=== PATIENT | male | born 1950 | race Caucasian/White ===

== ENCOUNTER 2016-12-28 10:31 | Emergency (ER) | payer OTHER ==
[~2016-12-28] VITALS: Ht 188 cm; Wt 93.0 kg
--- NOTE | 2016-12-28 11:15 | ED GENERAL ADULT ---
History of Present Illness General Chief Complaint: General Adult Stated Complaint: PER "HIS BLOOD PRESURE IS HIGH" Source: patient, family, old records Exam Limitations: no limitations Vital Signs & Intake/Output Vital Signs & Intake/Output Vital Signs Date Time Temp Pulse Resp B/P Pulse O2 O2 Flow FiO2 Ox Delivery Rate 12/28 1331 96.8 84 18 182/80 04 1314 96.8 84 18 182/80 12/28 1135 182/80 04 1130 194/84 12/28 1130 96 Room Air Room Air 12/28 1035 97.4 100 20 204/74 98 Room Air Room Air Allergies Coded Allergies: No Known Allergies (12/28/16) Reconcile Medications Bupropion HCl (Bupropion XL) 150 MG TAB.ER.24H 1 TAB PO QAM DEPRESSION ( Reported) Diltiazem HCl (Cardizem) 30 MG TABLET 1 TAB PO QAM htn Doxazosin Mesylate 8 MG TABLET 1 TAB PO QPM UNKNOWN (Reported) Lorazepam 0.5 MG TABLET 1 TAB PO BID ANXIETY (Reported) Losartan Potassium 50 MG TABLET 2 TAB PO DAILY HEART (Reported) Tiotropium [place] (Spiriva) 18 MCG CAP.W.DEV 1 CAP INH DAILY BREATHING PROBLEMS (Reported) Triage Note: PT TO ED WITH C/O HIGH BLOOD PRESSURE, ON LOSARTAN 100MG AND CARDURA 8MG DAILY "THEY HAVE BEEN AJUSTING MY MEDS". Triage Nurses Notes Reviewed? yes Onset: several weeks Duration: week(s):, continues in ED, waxing and waning Timing: recent history Injury Environment: home Severity: moderate Modifying Factors: Improves With: medication. HPI: Several weeks prior to admission spouse and patient not his morning blood pressures to be elevated with normalization in the evening. Denies fever chills nausea vomiting diarrhea abdominal pain chest pain shortness breath headache dysuria rash bleeding. Past History Travel History Traveled to [place] past 21 day No Medical History Any Pertinent Medical History? 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 No Review of Systems Review of Systems Constitutional: Reports: no symptoms. EENTM: Reports: no symptoms. Respiratory: Reports: no symptoms. Cardiovascular: Reports: no symptoms. GI: Reports: no symptoms. Genitourinary: Reports: no symptoms. Musculoskeletal: Reports: no symptoms. Skin: Reports: no symptoms. Neurological/Psychological: Reports: see HPI, anxiety. Hematologic/Endocrine: Reports: no symptoms. Immunologic/Allergic: Reports: no symptoms. All Other Systems: Reviewed and Negative Physical Exam Physical Exam General Appearance: well developed/nourished, alert, awake, anxious, mild distress Head: atraumatic, normal appearance Eyes: Bilateral: normal appearance, PERRL, EOMI. Ears, Nose, Throat: normal pharynx, normal ENT inspection Neck: normal inspection, supple, full range of motion, no midline tenderness Respiratory: normal breath sounds, chest non-tender, no respiratory distress, quiet respiration, lungs clear Cardiovascular: regular rate/rhythm, normal peripheral pulses, norml femoral pulses equa Peripheral Pulses: 4+ carotid (R), 4+ carotid (L) Gastrointestinal: normal bowel sounds, soft, non-tender, no organomegaly Back: normal inspection, normal range of motion Extremities: normal inspection, normal capillary refill, normal range of motion, no edema Neurologic/Psych: no motor/sensory deficits, awake, alert, oriented x 3, normal gait, normal mood/affect, 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 Skin: intact, normal color, warm/dry Lymphatic: no anterior cervical ronny Core Measures ACS in differential dx? No CVA/TIA Diagnosis: No Severe Sepsis Present: No Septic Shock Present: No Progress Differential Diagnoses I considered the following diagnoses in my evaluation of the patient: Essential hypertension anxiety Plan of Care: Orders Procedure Date/time Status URINALYSIS 12/28 1112 Complete TSH REFLEX 12/28 1112 Complete TROPONIN LEVEL 12/28 1112 Complete MAGNESIUM 12/28 1112 Complete COMPREHENSIVE METABOLIC PANEL 12/28 1112 Complete CBC WITHOUT DIFFERENTIAL 12/28 111 Complete EKG 12/28 1112 Active Laboratory Tests 12/28/16 1126: Anion Gap 6, Estimated GFR > 60, BUN/Creatinine Ratio 18.9, Glucose 99, Calcium 9.5, Magnesium 2.2, Total Bilirubin 0.5, AST 45, ALT 50, Alkaline Phosphatase 61 , Troponin I < 0.01, Total Protein 6.9, Albumin 4.0, Globulin 2.9, Albumin/ Globulin Ratio 1.4, TSH &T3 &Free T4 Intrp 1.270, CBC w Diff NO MAN DIFF REQ, RBC 3.84 L, MCV 98.3 H, MCH 32.8 H, RDW 13.7, MPV 6.6 L, Gran % 66.1, Lymphocytes % 23.6, Monocytes % 7.3, Eosinophils % 2.2, Basophils % 0.8, Absolute Granulocytes 3.7, Absolute Lymphocytes 1.3, Absolute Monocytes 0.4, Absolute Eosinophils 0.1, Absolute Basophils 0, PUBS MCHC 33.4 12/28/16 1000: Urine Color YEL, Urine Clarity CLEAR, Urine pH 6.0, Ur Specific [place] 1.010, Urine Protein 30 H, Urine Ketones NEG, Urine Nitrite NEG, Urine Bilirubin NEG, Urine Urobilinogen 0.2, Ur Leukocyte Esterase NEG, Ur Microscopic SEDIMENT EXAMINED, Urine RBC RARE, Ur Epithelial Cells RARE, Urine Hemoglobin TRACE- INTACT H, Urine Glucose NEG Diagnostic Imaging: Viewed by Me: Radiology Read. Discussed w/RAD: Radiology Read. CXR Impression: no acute abnormality, no infiltrates, normal size heart, normal mediastinum Initial ED EKG: normal axis, normal intervals, normal p-waves, normal QRS complex, normal sinus rhythm, no ST T wave changes Prior EKG: unchanged Rhythm Strip: normal sinus rhythm Departure Departure Time of Disposition: 1314 Disposition: HOME OR SELF CARE Condition: Stable Clinical Impression Primary Impression: Hypertension Qualifiers: Hypertension type: essential hypertension Qualified Code: I10 - Essential (primary) hypertension Referrals: MARISSA POSADA,Rick POLANCO Call for cardiology follow up LILLIAN POSADA,NEIL Bertrand (PCP/Family) Departure Forms: Customer Survey General Discharge Information Prescriptions: Current Visit Scripts Diltiazem HCl (Cardizem) 1 TAB PO QAM #30 TAB Critical Care Note Critical Care Note Critical Care Time: non-applicable
[2016-12-28 11:50] LABS: ABSOLUTE BASOPHIL COUNT 0 /CUMM (0.0-0.2); ABSOLUTE EOSINOPHIL COUNT 0.1 /CUMM (0.0-0.7); ABSOLUTE GRANULOCYTE CT 3.7 /CUMM (1.4-6.5); ABSOLUTE LYMPH COUNT 1.3 /CUMM (1.2-3.4); ABSOLUTE MONOCYTE COUNT 0.4 /CUMM (0.10-0.60); BASOPHIL % 0.8 % (0.0-2.0); EOSINOPHIL % 2.2 % (0-5); GRANULOCYTE % 66.1 % (42.2-75.2); HEMATOCRIT 37.7 % (42-52); MEAN CORPUSCULAR HGB 32.8 PG (27.0-31.0); MEAN CORPUSCULAR HGB CONC 33.4 G/DL (33.0-37.0); MEAN CORPUSCULAR VOLUME 98.3 FL (80.0-94.0); MEAN PLATELET VOLUME 6.6 FL (7.4-10.4); PLATELET COUNT 208 /CUMM (130-400); RBC DISTRIBUTION WIDTH 13.7 % (11.5-14.5); RED BLOOD CELL CT 3.84 /CUMM (4.70-6.10); WHITE BLOOD CELL COUNT 5.6 /CUMM (4.8-10.8)
--- NOTE | 2016-12-28 12:00 | RADIOLOGY REPORT ---
EXAMINATION: XR CHEST CLINICAL INFORMATION: Hypertension COMPARISON: None TECHNIQUE: 2 views of the chest were obtained. FINDINGS: No significant abnormality is noted involving the heart, lungs, mediastinum, bony thorax or soft tissues. Old healed right rib fractures present. IMPRESSION: No acute disease.
[2016-12-28] MEDS ORDERED: SPIRIVA18 MCG INH (12:54)
[2016-12-28] MEDS ORDERED: BUPROPION XL150 MG PO (12:54)
[2016-12-28] MEDS ORDERED: LOSARTAN POTASS50 M1 PO (12:54)
[2016-12-28] MEDS ORDERED: DOXAZOSIN MESYLA8 M1 PO (12:55)
[2016-12-28] MEDS ORDERED: LORAZEPAM0.5 M1 PO (12:55)
[2016-12-28] MEDS ORDERED: CARDIZEM30 M1 PO (13:17)
[2016-12-28 13:31] VITALS: BP 182/80
== END 2016-12-28 13:32 ==
LOC: ERH 10:31
PROVIDERS: Emergency Medicine
DX: I10 Essential (primary) hypertension (principal); Z72.0 Tobacco use
CPT/HCPCS: 81001; 93005; 93010

== ENCOUNTER 2017-11-08 06:18 | Inpatient (IN) | payer OTHER, MEDICARE ==
[2017-11-08] VITALS (8 sets, daily range): BP systolic 169–194; BP diastolic 72–91
[~2017-11-08] VITALS: Ht 188 cm; Wt 96.6 kg
[~2017-11-08 06:18] MED LIST: BUPROPION XL150 MG PO; CARDIZEM30 M1 PO; DOXAZOSIN MESYLA8 M1 PO; LORAZEPAM0.5 M1 PO; LOSARTAN POTASS50 M1 PO; SPIRIVA18 MCG INH
--- NOTE | 2017-11-08 06:56 | ED DYSPNEA/ASTHMA COMPLAINT ---
History of Present Illness General Chief Complaint: Dyspnea (COPD, CHF, Other) Stated Complaint: SOB Source: patient, family, old records Exam Limitations: no limitations Vital Signs & Intake/Output Vital Signs & Intake/Output Vital Signs Date Time Temp Pulse Resp B/P B/P Pulse O2 O2 Flow FiO2 Mean Ox Delivery Rate 11/08 0704 100.7 11/08 0636 95 Room Air Room Air 11/08 0626 100.7 84 22 169/80 95 Room Air Allergies Coded Allergies: No Known Allergies (12/28/16) Reconcile Medications Bupropion HCl (Bupropion XL) 150 MG TAB.ER.24H 1 TAB PO QAM DEPRESSION ( Reported) Diltiazem HCl (Cardizem) 30 MG TABLET 1 TAB PO QAM htn Doxazosin Mesylate 8 MG TABLET 1 TAB PO QPM UNKNOWN (Reported) Lorazepam 0.5 MG TABLET 1 TAB PO BID ANXIETY (Reported) Losartan Potassium 50 MG TABLET 2 TAB PO DAILY HEART (Reported) Tiotropium [place] (Spiriva) 18 MCG CAP.W.DEV 1 CAP INH DAILY BREATHING PROBLEMS (Reported) Core Measure Meds Pre-Hospital aspirin Triage Note: 67YO YO MALETO TRIAGE W/CO DIFF BREATHING THAT HAS BEEN PRESENT X 2 D BUT WORSENED THIS AM. HX COPD. RA SAT =95 EXP WHEEZE PRESENT Triage Nurses Notes Reviewed? yes Onset: 2 days Duration: day(s):, constant, continues in ED, getting worse Timing: recent history Severity: moderate, severe Activities at Onset: none Prior Episodes/Possible Cause: illness exposure Modifying Factors: Worsens With: movement. Associated Symptoms: cough, fever, loss of appetite, wheezing, weakness HPI: 2 days prior to admission patient complains of nasal congestion productive cough increasing wheezing / shortness of breath abdominal discomfort with bloating anorexia chills and fever. He denies chest pain headache dysuria rash bleeding. (Jessica POSADA,Ernesto) Past History Travel History Traveled to [place] past 21 day No Medical History Any Pertinent Medical History? 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 No (Ernesto Lopez MD) Psychosocial History ETOH Use: DAILY, [employer] (Will POSADA,Jacki) Review of Systems Review of Systems Constitutional: Reports: see HPI, chills, fever, malaise, weakness. EENTM: Reports: see HPI, nasal congestion. Respiratory: Reports: see HPI, cough, sputum production, wheezing. Cardiovascular: Reports: no symptoms. GI: Reports: see HPI, abdominal pain, bloating. Genitourinary: Reports: no symptoms. Musculoskeletal: Reports: see HPI, muscle pain. Skin: Reports: no symptoms. Neurological/Psychological: Reports: no symptoms. Hematologic/Endocrine: Reports: no symptoms. Immunologic/Allergic: Reports: no symptoms. All Other Systems: Reviewed and Negative (Ernesto Lopez MD) Physical Exam Physical Exam General Appearance: well developed/nourished, alert, awake, anxious, moderate distress, obese Head: atraumatic, normal appearance Eyes: Bilateral: normal appearance, PERRL, EOMI. Ears, Nose, Throat: normal pharynx, nasal congestion, moist mucus membranes Neck: normal inspection, supple, full range of motion, no midline tenderness Respiratory: chest non-tender, decreased breath sounds, wheezing, respiratory distress Cardiovascular: regular rate/rhythm, normal peripheral pulses, norml femoral pulses equa Peripheral Pulses: 4+ carotid (R), 4+ carotid (L) Gastrointestinal: normal bowel sounds, soft, non-tender, no organomegaly Extremities: normal inspection, normal capillary refill, normal range of motion, no edema Neurologic/Psych: no motor/sensory deficits, awake, alert, oriented x 3, normal gait, normal mood/affect, 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 Yes No ASA d/t Medical Contraindication CVA/TIA Diagnosis No Sepsis Present: No Sepsis Focused Exam Completed? No (Ernesto Lopez MD) Progress Differential Diagnosis: asthma, bronchitis, CHF, COPD, pneumonia Plan of Care: Orders Procedure Date/time Status Heart Healthy Diet 11/08 L Active ED Holding Orders 11/08 812 Active Admit to inpatient 11/08 812 Active Vital Signs 11/08 812 Active 24 HR URINE LYTES 11/08 812 Active Code Status 11/08 812 Active Add-on Test (ER Only) 11/08 757 Active Add-on Test (ER Only) 11/08 751 Active THYROID STIMULATING HORMONE 11/08 654 Active SERUM OSMOLALITY 11/08 654 Active FREE T4 11/08 654 Active ETHANOL 11/08 654 Active RAPID VIRAL INFLUENZA A 11/08 650 Complete BLOOD CULTURE 11/08 650 Active TROPONIN LEVEL 11/08 650 Active LIPASE 11/08 650 Active COMPREHENSIVE METABOLIC PANEL 11/08 650 Active CBC WITHOUT DIFFERENTIAL 11/08 650 Active B-TYPE NATRIURETIC PEP (BNP) 11/08 650 Active EKG 11/08 650 Active Current Medications Sig/[place] Start time Last Medication Dose Stop Time Status Admin Nicotine 21 MG ONCE ONE 11/08 814 UNVr (Nicoderm) 11/08 815 Laboratory Tests 11/08/1755: Anion Gap 7, Estimated GFR > 60, BUN/Creatinine Ratio 25.0, Glucose 108 H, Serum Osmolality Pending, Calcium 8.1 L, Total Bilirubin 0.5, AST 30, ALT 35, Alkaline Phosphatase 68, Troponin I 0.03, Hmr-S-Wnliqexpzuj Pept 1770 H, Total Protein 6.1 L, Albumin 3.4 L, Globulin 2.7, Albumin/Globulin Ratio 1.3, Lipase 52, TSH Pending, Free T4 Pending, CBC w Diff MAN DIFF ORDERED, RBC 3.26 L, MCV 96.7 H, MCH 33.1 H, MCHC 34.3, RDW 13.9, MPV 6.5 L, Gran % 83.8 H, Lymphocytes % 6.8 L, Monocytes % 9.1, Eosinophils % 0.2, Basophils % 0.1, Absolute Granulocytes 5.2, Segmented Neutrophils Pending, Absolute Lymphocytes 0.4 L, Absolute Monocytes 0.6, Absolute Eosinophils 0, Absolute Basophils 0, Serum Alcohol Pending Microbiology 11/08 07 BLOOD: Blood Culture - RECD 11/08 658 NASOPHARYN: Influenza Virus A & B Rapid Smear - COMP 11/08 654 BLOOD: Blood Culture - RECD 11/08/2017 7:13:13 AM Patient signed out to me by Dr. Lopez. Pending labs, x-ray. 8:15 AM D/W ROOPA, WILL ADMIT TO ICU. (WillJacki barcenas MD) Diagnostic Imaging: Viewed by Me: Radiology Read. Discussed w/RAD: Radiology Read. Initial ED EKG: pending Hand-Off Endorsed To: Jacki Solis MD Endorsed Time: 0700 Pending: EKG, labs, Xray (Ernesto Lopez MD) CXR Impression: PATIENT: KAMLESH HIRSCH PRESENT AGE: 67 PATIENT ACCOUNT NO: [id number] : 52 LOCATION: [facility] ORDERING PHYSICIAN: Ernesto Lopez MD SERVICE DATE: 11/08/17 EXAM TYPE: RAD - XRY-PORTABLE CHEST XRAY EXAMINATION: XR PORTABLE CHEST CLINICAL INFORMATION: Shortness of breath, productive cough, fever and wheezing. COMPARISON: 12/28/2016 TECHNIQUE: Portable AP view of the chest was obtained. FINDINGS: The cardiac silhouette is normal in size. The lungs are slightly oligemic but clear without consolidation or atelectasis. IMPRESSION: No evidence of pneumonia or pleural effusion. Mild oligemia in the bilateral lungs could reflect underlying COPD or emphysema. The lungs and pleural spaces are clear. DICTATED BY: Celso Edwards MD DATE/TIME DICTATED:11/08/17803 LEGAL SPECIALIST:JESSE DATE/TIME TRANSCRIBED:803 CONFIDENTIAL, DO NOT COPY WITHOUT APPROPRIATE AUTHORIZATION. < Electronically signed in Other Vendor System> SIGNED BY: Celso Edwards MD 11/08/17808 Initial ED EKG: NSR Prior EKG: unchanged (Jacki Solis MD) Departure Departure Disposition: STILL A PATIENT Condition: Stable Referrals: Cari Collier MD (PCP/Family) Departure Forms: Customer Survey General Discharge Information (Ernesto Lopez MD) Departure Time of Disposition: 812 Clinical Impression Primary Impression: COPD with acute exacerbation Secondary Impressions: Fever Qualifiers: Fever type: unspecified Qualified Code: R50.9 - Fever, unspecified Hyponatremia Admission Note Spoke With: Jaun Holguin MD Documentation of Exam: Documentation of any treatments & extenuating circumstances including Concerns Regarding Discharge (functional status, medication knowledge or non-compliance, living conditions, etc.) that warrant an admission rather than observation: [ REPEAT ELECTROLYTES, TRC/NEBS, 24 HR URINE COLLECTION, CONSIDER NEPHRO/PULMONARY CONSULTATION, CLOSE ELECTROLYTE MONITORING] (Jacki Solis MD) Critical Care Note Critical Care Note Critical Care Time: non-applicable (Jessica POSADA,Ernesto)
[2017-11-08 07:33] LABS: ABSOLUTE BASOPHIL COUNT 0 /CUMM (0.0-0.2); ABSOLUTE EOSINOPHIL COUNT 0 /CUMM (0.0-0.7); ABSOLUTE GRANULOCYTE CT 5.2 /CUMM (1.4-6.5); ABSOLUTE LYMPH COUNT 0.4 /CUMM (1.2-3.4); ABSOLUTE MONOCYTE COUNT 0.6 /CUMM (0.10-0.60); BASOPHIL % 0.1 % (0.0-2.0); EOSINOPHIL % 0.2 % (0-5); GRANULOCYTE % 83.8 % (42.2-75.2); HEMATOCRIT 31.6 % (42-52); MEAN CORPUSCULAR HGB 33.1 PG (27.0-31.0); MEAN CORPUSCULAR HGB CONC 34.3 G/DL (33.0-37.0); MEAN CORPUSCULAR VOLUME 96.7 FL (80.0-94.0); MEAN PLATELET VOLUME 6.5 FL (7.4-10.4); PLATELET COUNT 166 /CUMM (130-400); RBC DISTRIBUTION WIDTH 13.9 % (11.5-14.5); RED BLOOD CELL CT 3.26 /CUMM (4.70-6.10); WHITE BLOOD CELL COUNT 6.2 /CUMM (4.8-10.8)
--- NOTE | 2017-11-08 08:09 | RADIOLOGY REPORT ---
EXAMINATION: XR PORTABLE CHEST CLINICAL INFORMATION: Shortness of breath, productive cough, fever and wheezing. COMPARISON: 12/28/2016 TECHNIQUE: Portable AP view of the chest was obtained. FINDINGS: The cardiac silhouette is normal in size. The lungs are slightly oligemic but clear without consolidation or atelectasis. IMPRESSION: No evidence of pneumonia or pleural effusion. Mild oligemia in the bilateral lungs could reflect underlying COPD or emphysema. The lungs and pleural spaces are clear.
[2017-11-08] MEDS ORDERED: HYDROCHLOROTH12.5 M3 PO (10:18)
[2017-11-08] MEDS ORDERED: ASPIRIN EC81 M1 PO (10:18)
[2017-11-08] MEDS ORDERED: VITAMIN D2000 UNI1 PO (10:18)
--- NOTE | 2017-11-08 10:22 | History & Physical ---
Nicole POSADA,[facility] 11/08/17 1022: General Information and HPI MD Statement: I have seen and personally examined KAMLESH HIRSCH and documented this H&P. The patient is a 67 year old M who presented with a patient stated chief complaint of [Shortness of breath, cough, generalized weakness]. Source of Information: patient, family History of Present Illness: The patient is a 67-year-old man with a past medical history of difficult to control hypertension, COPD, BPH, osteoarthritis depression and anxiety. He presents with 2 days of worsening shortness of breath, myalgias and generalized weakness. His symptoms started 2 days prior with a dry itchy throat along with cough productive of phlegm (unknown color) and nasal congestion with rhinorrhea. He also noticed chills and a low-grade fever measured at 100 Fahrenheit on Thursday. In addition he had shortness of breath with wheezing which progressively worsened yesterday resulting in him presenting to the hospital early this morning. The patient has noticed decreased appetite with poor by mouth intake, along with bloating but denies abdominal pains, diarrhea or constipation. He had one normal bowel movement yesterday which was nonbloody. In addition he denies dysuria or hematuria but does have some nocturia from his BPH. He took Mucinex and Advil with some relief of symptoms on Thursday and yesterday. Of note patient tends to have borderline low sodium but denies any recent change in his diuretic regimen (hydrochlorothiazide). He has also been on a stable dose of Wellbutrin with no recent changes. Presented in the ER he was noted to be using accessory muscles of respiration with improved with administration of IV Solu Medrol and nebulizer treatments. 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 Home Who Do You Live With? spouse Smoking Status: Current Everyday Smoker (1ppd for 50 years approx) ETOH Use: DAILY, [employer] Employment History Employment Retired Review of Systems Review of Systems Constitutional: Reports: see HPI. Exam & Diagnostic Data Last 24 Hrs of Vital Signs/I&O Vital Signs Date Time Temp Pulse Resp B/P B/P Pulse O2 O2 Flow FiO2 Mean Ox Delivery Rate 11/08 0926 99.5 76 16 167/83 93 Room Air 11/08 0816 99.5 76 20 169/78 11/08 0816 99.5 76 20 169/78 96 Room Air 11/08 0815 99.5 11/08 0704 100.7 11/08 0636 95 Room Air Room Air 11/08 0626 100.7 84 22 169/80 95 Room Air Intake & Output 11/08 1600 11/08 0800 11/08 0000 Intake Total 0 Output Total Balance 0 Intake, Oral 0 Patient 213 lb Weight Physical Exam General Appearance Alert, Oriented X3, Cooperative, No Acute Distress Skin No Rashes Skin Temp/Moisture Exam: Warm/Dry Sepsis Skin Exam (color): Normal for Ethnicity HEENT Atraumatic, PERRLA, EOMI, Dry mucus membranes Neck Supple, No JVD, No thryomegaly, +2 Carotid Pulse wo Bruit Lymphatic Cervical nl Cardiovascular Regular Rate, Normal S1, Normal S2, No Murmurs Lungs Normal Air Movement, bilateral scattered expiratory wheeze Abdomen Normal Bowel Sounds, Soft, No Tenderness, No Hepatospenomegaly, No Masses Neurological Normal Speech, Strength at 5/5 X4 Ext, Normal Tone, Cranial Nerves 3-12 NL Extremities No Edema Vascular Pulses Symmetrical (radial) Sepsis Peripheral Pulse Location: Dorsalis Pedis Sepsis Peripheral Pulse Exam: Normal Sepsis Cap Refill Exam: <2 Sec Last 24 Hrs of Labs/Mick: Laboratory Tests 11/08/17 1008: Urine Opiates Screen < 100.00, Methadone Screen < 40, Barbiturate Screen < 60, Ur Phencyclidine Scrn < 6.00, Amphetamines Screen 238, U Benzodiazepines Scrn < 85, Urine Cocaine Screen < 50, Urine Cannabis Screen < 5.00, Urine Osmolality 448, Ur Random Creatinine 103.9, Ur Random Sodium 25 L, Ur Random Potassium 81.8, Fraction Sodium Excret 0.2 11/08/17 0655: Anion Gap 7, Estimated GFR > 60, BUN/Creatinine Ratio 25.0, Glucose 108 H, Serum Osmolality 252 L, Calcium 8.1 L, Total Bilirubin 0.5, AST 30, ALT 35, Alkaline Phosphatase 68, Troponin I 0.03, Dir-T[place] Pept 1770 H, Total Protein 6.1 L, Albumin 3.4 L, Globulin 2.7, Albumin/Globulin Ratio 1.3, Lipase 52, TSH 1.090, Free T4 0.86, CBC w Diff MAN DIFF ORDERED, RBC 3.26 L, MCV 96.7 H, MCH 33.1 H, MCHC 34.3, RDW 13.9, MPV 6.5 L, Gran % 83.8 H, Lymphocytes % 6.8 L, Monocytes % 9.1, Eosinophils % 0.2, Basophils % 0.1, Absolute Granulocytes 5.2, Absolute Lymphocytes 0.4 L, Absolute Monocytes 0.6, Absolute Eosinophils 0, Absolute Basophils 0, Platelet Estimate ADEQUATE, Hypochromic- Microcytic 1+, Poikilocytosis 1+, Anisocytosis 1+, Serum Alcohol < 10.0 Microbiology 11/08 1023 UPPER RESP: Surveillance Culture - ORD 11/08 1023 GI: Surveillance Culture - ORD 11/08 1008 URINE ROUT: Legionella Antigen - RECD 11/08 1008 URINE ROUT: Streptococcus pneumoniae Antigen (M - RECD 11/08 0700 BLOOD: Blood Culture - RECD 11/08 0659 NASOPHARYN: Influenza Virus A & B Rapid Smear - COMP 11/08 0655 BLOOD: Blood Culture - RECD Diagnostic Data EKG Results Normal sinus rhythm heart rate [address] segment changes CXR Results IMPRESSION: No evidence of pneumonia or pleural effusion. Mild oligemia in the bilateral lungs could reflect underlying COPD or emphysema. The lungs and pleural spaces are clear. Assessment/Plan Assessment: The patient is a 67-year-old man with a past medical history of difficult to control hypertension, COPD, BPH, osteoarthritis depression and anxiety. He presents with 2 days of worsening shortness of breath, myalgias and generalized weakness. He has hyponatremia which may be from combination of poor by mouth intake from his recent febrile illness and his diuretic medication hydrochlorothiazide. In addition his cough and shortness of breath is concerning for COPD exacerbation triggered by viral upper respiratory infection. A developing Pneumonia is also in the differential. He will be admitted and rehydrated as was dry on clinical exam with normal saline which will also help correct his hyponatremia. Problem list 1. Hyponatremia 2. Resistant Hypertension 3. COPD exacerbation 4. Depression and anxiety 5. BPH 6. Osteoarthritis Plan 1. Hyponatremia * Admit to ICU * Urine osmolality and urine electrolytes * Start IV normal saline at 150 mL an hour * Monitor sodium every 4 hours and avoid overcorrection. Maximal correction should be 0.5 mEq per hour and no more than 12 mEq correction of serum sodium in 24 hours * Nephrology consultation for hyponatremia and resistant hypertension As patient drinks 2 beers daily we will put him on CIWA protocol and watch for signs of withdrawal 2. Resistant Hypertension * Hold losartan for now due to hyperkalemia 5.3 * Continue carvedilol 18.75 mg a.m. and 25 mg p.m. * Hold hydrochlorothiazide due to hyponatremia * Can start amlodipine 5 mg if blood pressure remains elevated * Nephrology consultation for hyponatremia and resistant hypertension 3. COPD exacerbation * C evaluation for nebulizer therapy * Repeat rapid flu test * Send urine Legionella and strep pneumo antigen test * Patient received Solu-Medrol 125 mg once in the ER, will Start IV Solu Medrol 40 mg every 12 hours * Start by mouth azithromycin 500 mg daily * Oxygen by nasal cannula as needed to keep O2 sat greater than 92% * Since patient is a smoker will start nicotine patch 21 mg daily 4. Depression and anxiety * Patient has been on bupropion for a long time on stable dose so this is unlikely to be the cause of his hyponatremia * Continue bupropion ER 150 mg by mouth daily * Continue Ativan 0.5 mg by mouth twice a day when necessary for anxiety 5. BPH * Continue Cardura 8 mg at bedtime 6. Osteoarthritis * Tylenol as needed when necessary for pain * We'll avoid NSAIDs if possible DVT prophylaxis-subcutaneous Lovenox 40 minute and daily CODE STATUS: Patient is full code As Ranked By This Provider Problem List: 1. Hyponatremia 2. COPD with acute exacerbation 3. Fever Qualifiers Fever type: unspecified Qualified Code: R50.9 - Fever, unspecified 4. Hypertension Core Measures/Misc (06/14) Acute Coronary Syndrome ACS Diagnosis: No Congestive Heart Failure Congestive Heart Failure Diagnosis No Cerebrovascular Accident CVA/TIA Diagnosis: No VTE (View Protocol) VTE Risk Factors Smoker No Mechanical VTE Prophylaxis d/t N/A MechProphylax Ordered No VTE Pharm Prophylaxis d/t NA PharmProphylax ordered Sepsis (View protocol) Sepsis Present: No Holguin MD,Jaun 11/08/17 0036: General Information and HPI Allergies/Medications Home Med list Albuterol Sulfate (Ventolin Hfa) 90 MCG HFA.AER.AD 2 PUF INH Q4-6 PRN PRN Shortness of Breath . Amlodipine (Norvasc) 2.5 MG TABLET 3 TAB PO DAILY Hypertension . Aspirin (Ecotrin*) 81 MG TABLET.DR 1 TAB PO DAILY PREVENTION (Reported) Azithromycin (Zithromax) 250 MG TABLET 1 TAB PO AD Pneumonia . Carvedilol 25 MG TABLET 25 MG PO AT BEDTIME Heart . Carvedilol 6.25 MG TABLET 18.75 MG PO DAILY Heart . Cefpodoxime Proxetil 200 MG TABLET 1 TAB PO BID Pneumonia . Cholecalciferol (Vitamin D3) (Vitamin D) 2,000 UNIT TABLET 1 TAB PO DAILY SUPPLEMENT (Reported) Doxazosin Mesylate 8 MG TABLET 1 TAB PO QPM BPH (Reported) Lorazepam 0.5 MG TABLET 1 TAB PO BID ANXIETY (Reported) Oseltamivir Phosphate (Tamiflu) 75 MG CAPSULE 75 MG PO BID Influenza . Prednisone 10 MG TABLET 1 TAB PO DAILY Steroid taper for SOB . Tiotropium [place] (Spiriva) 18 MCG CAP.W.DEV 1 CAP INH DAILY BREATHING PROBLEMS (Reported) Attending MD Review Statement Attending Statement Attending MD Statement: examined this patient, discuss w/resident/PA/LEISURE TRAVEL AGENT, agreed w/resident/PA/LEISURE TRAVEL AGENT, discussed with family, reviewed EMR data (avail), reviewed images, amended to note Attending Assessment/Plan: The patient is a 67 yo male with h/o HTN (difficult to control), BPH, COPD, anxiety who presented in the ED with c/o 2 days of worsening dyspnea/myalgias and weakness. Found to be significantly hyponatremic in ED (117), although relatively asymptomatic. Has h/o hyponatremia in past and dose of HCTZ was cut in half approximately 6 months ago. Physical Exam: VS: T 100.7, P 84, R 22, BP 169/80, PO 95% HEENT: eyes- PERRLA, EOMI ra- ? slightly dry mucosa Neck: no JVD/bruits Chest: mild wheeze/rhonchi (post aerosol/IV steroids) Cor: RRR nl S1, S2 w/o murm Abd: BS+, soft, NT Ext: no edema Neuro: alert & oriented x 3, non-focal exam (gait not tested) Labs/Tests- as above Impression/Plan: #Hyponatremia- severe. At first I felt may be due to volume depletion from HCTZ, diminished po intake, some diarrhea, however urine lytes suggest ?component of SIADH. Plan: Admit to ICU for close monitoring of Na- do not correct too quickly. Nephrology consult (obtained and appreciated). Urine lytes and osms checked. Fluid restrict as per Nephrology and repeat Na in 4 hours. Hold HCTZ. #HTN- patient has been on multiple meds and BP has been difficult to control. Chart indicates prior Diltiazem - now on Losartan/Carvedilol/HCTZ/Cardura. Plan: Hold HCTZ. Continue Carvedilol, Cardura, add Amlodipine- hold Losartan. #Hyperkalemia- mild 5.3. Plan: As above will hold Losartan and follow. #COPD Exacerbation- with urine strep pneumo positive. Plan: Agree with repeat rapid flu, IV medrol, aerosol, Ceftriaxone IV, Zithromax PO. #Depression/Anxiety- appears under control. Plan: Continue bupropion/Ativan as per usual regimen (do not want him to withdraww). Check [place] regarding Ativan scripts. #BPH- has been on Cardura. Plan: Continue Cardura.
[2017-11-08] MEDS ORDERED: CARVEDILOL12.5 M1 PO (10:51)
--- NOTE | 2017-11-08 12:26 | Cons- Nephrology ---
General Information and HPI Consulting Request Date of Consult: 11/08/17 Requested By: Jaun Holguin MD Reason for Consult: Hyponatremia History of Present Illness: 67 yo male with historoy of hypertension, COPD, anxiety on HCTZ and Welbutrin. He has had mild hyponatremia for some time, as low as 128, according to . He came to ED today because of URI symptoms, more SOB. He was found to have a serum sodium of 117. He admits to drinking more fluids with his URI, less po intake. He was also taking 400 mg of ibuprofen twice daily. Denies neurologic symptoms, N/V or diarrhea. FH: negative for renal disease SH: positive for smoking and social ethanol. Allergies/Medications Allergies: Coded Allergies: No Known Allergies (12/28/16) Home Med List: Aspirin (Ecotrin*) 81 MG TABLET.DR 1 TAB PO DAILY PREVENTION (Reported) Bupropion HCl (Bupropion XL) 150 MG TAB.ER.24H 1 TAB PO QAM DEPRESSION ( Reported) Carvedilol 12.5 MG TABLET 0 PO AD blood pressure (Reported) take 1 and half tablets in the a.m.and then take 2 tablets at bedtime Cholecalciferol (Vitamin D3) (Vitamin D) 2,000 UNIT TABLET 1 TAB PO DAILY SUPPLEMENT (Reported) Doxazosin Mesylate 8 MG TABLET 1 TAB PO QPM BPH (Reported) Hydrochlorothiazide 12.5 MG CAPSULE 1 CAP PO DAILY BLOOD PRESSURE (Reported) Lorazepam 0.5 MG TABLET 1 TAB PO BID ANXIETY (Reported) Losartan Potassium 50 MG TABLET 2 TAB PO DAILY HEART (Reported) Tiotropium [place] (Spiriva) 18 MCG CAP.W.DEV 1 CAP INH DAILY BREATHING PROBLEMS (Reported) Current Medications: Current Medications Sig/[place] Start time Last Medication Dose Route Stop Time Status Admin Acetaminophen 650 MG Q6P PRN 11/08 1030 AC PO Acetaminophen 650 MG ONCE ONE 11/08 0700 DC 11/08 PO 11/08 07 0704 Acetaminophen 0 .STK-MED ONE 11/08 0659 DC PO Albuterol Sulfate 3 ML ONCE ONE 11/08 0700 DC 11/08 INH 11/08 07 0658 Aspirin Buffered 81 MG DAILY 11/08 1030 AC PO Azithromycin 250 MG DAILY 11/09 1000 AC PO Azithromycin 500 MG ONCE ONE 11/08 1100 DC PO 11/08 1101 Carvedilol 18.75 MG DAILY 11/09 1000 AC PO Carvedilol 25 MG AT BEDTIME 11/08 2200 AC PO Ceftriaxone Sodium 1,000 MG DAILY 11/08 1100 AC IV Cholecalciferol 1,000 IU DAILY 11/08 1030 AC PO Doxazosin Mesylate 8 MG AT BEDTIME 11/08 2200 AC PO Enoxaparin Sodium 40 MG DAILY 11/08 1025 AC SC Furosemide 20 MG ONCE ONE 11/08 1215 UNVr IV 11/08 1216 Ipratropium [place] 2.5 ML ONCE ONE 11/08 0700 DC 11/08 INH 11/08 0701 0658 Lorazepam 0.5 MG BID PRN 11/08 2200 AC PO 11/15 2159 Lorazepam 0 .STK-MED ONE 11/08 0842 DC PO Lorazepam 0.5 MG ONE ONE 11/08 0830 DC 11/08 PO 11/08 0831 0842 Methylprednisolone 125 MG ONCE ONE 11/08 0700 DC 11/08 IV 11/08 0701 0704 Methylprednisolone 0 .STK-MED ONE 11/08 0659 DC .ROUTE Morphine Sulfate 2 MG Q4P PRN 11/08 1030 AC IV Nicotine 21 MG DAILY 11/09 1000 AC TOP Nicotine 0 .STK-MED ONE 11/08 0816 DC TOP Nicotine 21 MG ONCE ONE 11/08 0815 DC 11/08 TOP 11/08 0816 0815 Sodium Chloride 1,000 ML Q10H 11/08 0845 AC 11/08 IV 0846 Tiotropium [place] 1 PUF DAILY 11/09 1000 AC INH Review of Systems Review of Systems: Negative except as noted above. 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 Home Who Do You Live With? spouse Smoking Status: Current Everyday Smoker (1ppd for 50 years approx) ETOH Use: DAILY, [employer] Employment History Employment: Retired Exam & Diagnostic Data Vital Signs and I&O Vital Signs Date Time Temp Pulse Resp B/P B/P Pulse O2 O2 Flow FiO2 Mean Ox Delivery Rate 11/08 1100 98.2 80 22 186/89 11/08 1100 98.2 83 20 194/82 95 Room Air 11/08 0926 99.5 76 16 167/83 93 Room Air 11/08 0816 99.5 76 20 169/78 11/08 0816 99.5 76 20 169/78 96 Room Air 11/08 0815 99.5 11/08 0704 100.7 11/08 0636 95 Room Air Room Air 11/08 0626 100.7 84 22 169/80 95 Room Air Intake & Output 11/08 1600 11/08 0400 11/07 04011/06 040 Intake Total 0 Output Total Balance 0 Intake, Oral 0 Patient 213 lb Weight Physical Exam: NAD VS as above. Eyes: anicteric, PERRLA Neck: no mas or thryomegaly Nodes: negative cervical and inguinal Skin: no rash, induration Lungs: expiratory wheeze, resonant to percussion CV: no rub, murmer Abd: nontender, no organomegaly, bs positive Ext: no edema, 1+ dp pulse Neuro: A&O CN intact, no asterixis. Results Pertinent Lab Results: Laboratory Tests 11/08 11/08 11/08 1105 1008 0655 Chemistry Sodium (137 - 145 mmol/L) 119 *L 117 *L Potassium (3.5 - 5.1 mmol/L) 4.7 5.3 H Chloride (98 - 107 mmol/L) 85 L 85 L Carbon Dioxide (22 - 30 mmol/L) 24 25 Anion Gap (5 - 16) 10 7 BUN (9 - 20 mg/dL) 20 20 Creatinine (0.7 - 1.2 mg/dL) 0.9 0.8 Estimated GFR (>60 ml/min) > 60 > 60 BUN/Creatinine Ratio (7 - 25 %) 25.0 Glucose (65 - 99 mg/dL) 120 H 108 H Serum Osmolality (285 - 295 MOSM/KG) 252 L Calcium (8.4 - 10.2 mg/dL) 8.4 8.1 L Phosphorus (2.5 - 4.5 mg/dL) 4.1 Magnesium (1.6 - 2.3 mg/dL) 1.9 Total Bilirubin (0.2 - 1.3 mg/dL) 0.4 0.5 AST (17 - 59 U/L) 30 30 ALT (21 - 72 U/L) 37 35 Alkaline Phosphatase (< 127 U/L) 68 Troponin I (<0.11 ng/ml) 0.03 Qtv-O-Rlvykwtsswh Pept (<125 pg/mL) 1770 H Total Protein (6.3 - 8.2 g/dL) 6.1 L Albumin (3.5 - 5.0 g/dL) 3.7 3.4 L Globulin (1.9 - 4.2 gm/dL) 2.7 Albumin/Globulin Ratio (1.1 - 2.2 %) 1.3 Lipase (23 - 300 U/L) 52 TSH (0.270 - 4.200 uIU/mL) 1.090 Free T4 (0.78 - 2.44 ng/dL) 0.86 Hematology CBC w Diff MAN DIFF ORDERED WBC (4.8 - 10.8 /CUMM) 6.2 RBC (4.70 - 6.10 /CUMM) 3.26 L Hgb (14.0 - 18.0 G/DL) 10.8 L Hct (42 - 52 %) 31.6 L MCV (80.0 - 94.0 FL) 96.7 H MCH (27.0 - 31.0 PG) 33.1 H MCHC (33.0 - 37.0 G/DL) 34.3 RDW (11.5 - 14.5 %) 13.9 Plt Count (130 - 400 /CUMM) 166 MPV (7.4 - 10.4 FL) 6.5 L Gran % (42.2 - 75.2 %) 83.8 H Lymphocytes % (20.5 - 51.1 %) 6.8 L Monocytes % (1.7 - 9.3 %) 9.1 Eosinophils % (0 - 5 %) 0.2 Basophils % (0.0 - 2.0 %) 0.1 Absolute Granulocytes (1.4 - 6.5 /CUMM) 5.2 Absolute Lymphocytes (1.2 - 3.4 /CUMM) 0.4 L Absolute Monocytes (0.10 - 0.60 /CUMM) 0.6 Absolute Eosinophils (0.0 - 0.7 /CUMM) 0 Absolute Basophils (0.0 - 0.2 /CUMM) 0 Platelet Estimate (ADEQUATE) ADEQUATE Hypochromic-Microcytic 1+ Poikilocytosis 1+ Anisocytosis 1+ Toxicology Urine Opiates Screen (>2000 NG/ML) < 100.00 Methadone Screen (>300 NG/ML) < 40 Barbiturate Screen (>200 NG/ML) < 60 Ur Phencyclidine Scrn (>25 NG/ML) < 6.00 Amphetamines Screen (>1000 NG/ML) 238 U Benzodiazepines Scrn (>200 NG/ML) < 85 Urine Cocaine Screen (>300 NG/ML) < 50 Urine Cannabis Screen (>50 NG/ML) < 5.00 Serum Alcohol (<10 MG/DL) < 10.0 Urines Urine Osmolality (300 - 1000 MOSM/KG) 448 Ur Random Creatinine (mg/dL) 103.9 Ur Random Sodium (30 - 90 mmol/L) 25 L Ur Random Potassium (mmol/L) 81.8 Fraction Sodium Excret (<1% %) 0.2 Assessment/Plan Assessment/Recommendations Assessment: Hyponatremia probably multifcatorial from COPD, drugs including NSAIDs, HCTZ and Welbutrin. Has had hyponatremia for some time but increased fluid intake and started Advil recently. Meri in 20s with Uosm in 40Os, but on HCTZ. Recommendations: On NS but I don't think he is volume depleted, in fact is quite hypertensive. Would given 20 mg of IV Lasix now, repeat chemistries in 4 hours. Maintain 800 cc fluid restriciton. Goal is to only ilncrease SNa to around 127 over 24 hours so if repeat serum sodium up in the 120s would just fluid restritct, stop saline. Would permanently discontinue thiazides. Always must be concerned about SIADH in smoker and at some point consider chest CT to exclude nodules/ masses.
--- NOTE | 2017-11-08 23:04 | Admission Certification ---
Admission Certification Certification Statement - As attending physician, I certify that at the time of - admission, based on clinical presentation, severity of - symptoms, need for further diagnostic testing and - therapeutic interventions, and risk of adverse outcomes - without in-hospital treatment, in my clinical assessment, - this patient requires an acute hospital stay for a minimum - of two nights or longer. I have also considered psychsocial - factors such as support system, advanced age, financial - issues, cognitive issues, and failed out-patient treatments, - past re-admission history, safety of patient, and lack of - compliance as applicable. Specific rationale supporting this admission is: The patient presented in ED with dyspnea and cough c/w COPD exacerbation, however was found to be severely hyponatremic (117). He was relatively aysmptomatic, however needs admit to ICU for close monitoring of Na level, Nephrology consult appreciated. Also Rx for COPD exacerbation with IV Ceftriaxone po Zithromax (urine strep +), received IV steroids, aerosol.
[2017-11-09] VITALS (8 sets, daily range): BP systolic 122–174; BP diastolic 60–92
[2017-11-09 05:04] LABS: ABSOLUTE BASOPHIL COUNT 0 /CUMM (0.0-0.2); ABSOLUTE EOSINOPHIL COUNT 0 /CUMM (0.0-0.7); ABSOLUTE GRANULOCYTE CT 5.1 /CUMM (1.4-6.5); ABSOLUTE LYMPH COUNT 0.6 /CUMM (1.2-3.4); ABSOLUTE MONOCYTE COUNT 0.6 /CUMM (0.10-0.60); BASOPHIL % 0 % (0.0-2.0); EOSINOPHIL % 0 % (0-5); GRANULOCYTE % 81.2 % (42.2-75.2); MEAN CORPUSCULAR HGB CONC 33.7 G/DL (33.0-37.0); MEAN PLATELET VOLUME 6.3 FL (7.4-10.4); PLATELET COUNT 154 /CUMM (130-400); RBC DISTRIBUTION WIDTH 13.9 % (11.5-14.5); RED BLOOD CELL CT 3.37 /CUMM (4.70-6.10); WHITE BLOOD CELL COUNT 6.3 /CUMM (4.8-10.8)
--- NOTE | 2017-11-09 07:26 | Cons- CR[facility] ---
General Information and HPI Allergies/Medications Allergies: Coded Allergies: No Known Allergies (12/28/16) Home Med List: Aspirin (Ecotrin*) 81 MG TABLET.DR 1 TAB PO DAILY PREVENTION (Reported) Bupropion HCl (Bupropion XL) 150 MG TAB.ER.24H 1 TAB PO QAM DEPRESSION ( Reported) Carvedilol 12.5 MG TABLET 0 PO AD blood pressure (Reported) take 1 and half tablets in the a.m.and then take 2 tablets at bedtime Cholecalciferol (Vitamin D3) (Vitamin D) 2,000 UNIT TABLET 1 TAB PO DAILY SUPPLEMENT (Reported) Doxazosin Mesylate 8 MG TABLET 1 TAB PO QPM BPH (Reported) Hydrochlorothiazide 12.5 MG CAPSULE 1 CAP PO DAILY BLOOD PRESSURE (Reported) Lorazepam 0.5 MG TABLET 1 TAB PO BID ANXIETY (Reported) Losartan Potassium 50 MG TABLET 2 TAB PO DAILY HEART (Reported) Tiotropium [place] (Spiriva) 18 MCG CAP.W.DEV 1 CAP INH DAILY BREATHING PROBLEMS (Reported) Past History Travel History Traveled to [place] past 21 day No Medical History Blood Transfusion Hx: No Neurological: NONE EENT: NONE Cardiovascular: hypertension Respiratory: COPD, pneumonia Gastrointestinal: NONE Hepatic: NONE Renal: NONE Musculoskeletal: osteoarthritis Psychiatric: anxiety Endocrine: NONE Blood Disorders: NONE Cancer(s): NONE 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 Home Who Do You Live With? spouse Services at Home: None Smoking Status: Current Everyday Smoker (1ppd for 50 years approx) ETOH Use: DAILY, [employer] Employment History Employment: Retired Assessment/Plan Consult Acknowledgment - Thank you for your consult request.
--- NOTE | 2017-11-09 09:21 | PN- Nephrology ---
Assessment/Plan Assessment: Hyponatremia: severe & chronic; due to thiazide - improving Suggestion: 1. Fluid restriction 800 ml/day till Na 130 then relax 8153-2489 ml/d 2. NaCL tabs 3gram po tid x next 2 days 3. Serial lytes OK for floor from renal perspective Subjective Subjective: Feeling better Cough gone No SOB Objective Vital Signs and I&Os Vital Signs Date Time Temp Pulse Resp B/P B/P Pulse O2 O2 Flow FiO2 Mean Ox Delivery Rate 11/09 843 92 Nasal 2.0L Cannula 11/09 08 92 Nasal 2.0L Cannula 11/09 08 98.4 86 24 160/80 92 Nasal 2.0L Cannula 11/09 0600 98.7 76 26 168/85 11/09 0442 84 170/84 11/09 0442 84 170/84 11/09 0400 98.7 74 18 164/86 11/09 0400 98 Nasal 2.0L Cannula 11/09 0200 99.1 72 28 174/92 11/09 0000 99.1 70 19 154/88 11/09 0000 97 Nasal 2.0L Cannula 11/09 0000 99.1 70 19 154/88 97 Nasal 2.0L Cannula 11/08 2200 99.4 90 21 178/80 11/08 2000 99.4 85 27 169/78 11/08 1908 87 187/92 11/08 1904 Nasal 2.0L Cannula 11/08 1800 86 26 171/85 11/08 1600 98.3 88 24 178/72 11/08 1600 98.3 88 24 178/82 92 Room Air 11/08 1600 92 Room Air 11/08 1458 85 174/81 11/08 1400 84 22 191/89 11/08 1200 86 20 194/91 11/08 1100 98.2 80 22 186/89 11/08 1100 95 Room Air 11/08 1100 98.2 83 20 194/82 95 Room Air 11/08 0926 99.5 76 16 167/83 93 Room Air Intake & Output 11/09 1600 11/09 0400 11/08 1600 11/08 0400 11/07 1600 11/07 0400 Intake Total 30 700 530 Output Total 586 088 2670 Balance -620 150 -1120 Intake, IV 400 350 Intake, Oral 30 300 180 Output, Urine 135 628 3882 Patient 213 lb Weight Weight Bed scale Measurement Method Physical Exam General Appearance: well developed/nourished, no apparent distress, alert Head: atraumatic, normal appearance Ears, Nose, Throat: normal ENT inspection Respiratory: no respiratory distress, quiet respiration, rhonchi Cardiovascular: regular rate/rhythm Abdomen: soft, non-tender, no organomegaly Extremities: no edema Neurologic/Psychiatric: awake, alert Current Medications: Current Medications Sig/[place] Start time Last Medication Dose Route Stop Time Status Admin Acetaminophen 650 MG Q6P PRN 11/08 1030 AC PO Albuterol Sulfate 3 ML BID 11/08 2200 DC INH Albuterol Sulfate 3 ML TID 11/08 1656 AC 11/09 INH 0841 Amlodipine Besylate 5 MG DAILY 11/09 1000 AC 11/09 PO 0442 Amlodipine Besylate 5 MG STAT STA 11/08 1328 DC 11/08 PO 11/08 1329 1458 Aspirin Buffered 81 MG DAILY 11/08 1030 AC PO Azithromycin 250 MG DAILY 11/09 1000 AC PO Azithromycin 500 MG ONCE ONE 11/08 1100 DC 11/08 PO 11/08 1101 1227 Carvedilol 18.75 MG DAILY 11/09 1000 AC 11/09 PO 0442 Carvedilol 25 MG AT BEDTIME 11/08 2200 AC 11/08 PO 1908 Ceftriaxone Sodium 1,000 MG DAILY 11/08 1100 AC 11/08 IV 1222 Cholecalciferol 1,000 IU DAILY 11/08 1030 AC PO Doxazosin Mesylate 8 MG AT BEDTIME 11/08 2200 AC 11/08 PO 1908 Enoxaparin Sodium 40 MG DAILY 11/08 1025 AC 11/08 SC 1459 Furosemide 20 MG ONCE ONE 11/08 1215 DC 11/08 IV 11/08 1216 1222 Lorazepam 0.5 MG BID PRN 11/08 2200 AC 11/08 PO 11/15 2159 1907 Morphine Sulfate 2 MG Q4P PRN 11/08 1030 AC IV Nicotine 21 MG DAILY 11/09 1000 AC TOP Oseltamivir Phosphate 75 MG BID 11/08 1430 AC 11/08 PO 11/12 1429 2117 Sodium Chloride 3,000 MG TID 11/09 1000 UNVr PO Sodium Chloride 1,000 ML Q10H 11/08 0845 DC 11/08 IV 1908 Tiotropium [place] 1 PUF DAILY 11/09 1000 AC INH Results Pertinent Lab Results: Laboratory Tests 11/09 11/09 11/08 11/08 0435 0005 1999 1830 Chemistry Sodium (137 - 145 mmol/L) 125 L 125 L 121 L 121 L Potassium (3.5 - 5.1 mmol/L) 4.3 Chloride (98 - 107 mmol/L) 92 L Carbon Dioxide (22 - 30 mmol/L) 25 Anion Gap (5 - 16) 8 BUN (9 - 20 mg/dL) 22 H Creatinine (0.7 - 1.2 mg/dL) 0.7 Estimated GFR (>60 ml/min) > 60 Glucose (65 - 99 mg/dL) 126 H Calcium (8.4 - 10.2 mg/dL) 8.4 Phosphorus (2.5 - 4.5 mg/dL) 4.5 Magnesium (1.6 - 2.3 mg/dL) 2.1 Total Bilirubin (0.2 - 1.3 mg/dL) 0.1 L AST (17 - 59 U/L) 29 ALT (21 - 72 U/L) 42 Albumin (3.5 - 5.0 g/dL) 3.3 L Hematology CBC w Diff NO MAN DIFF REQ WBC (4.8 - 10.8 /CUMM) 6.3 RBC (4.70 - 6.10 /CUMM) 3.37 L Hgb (14.0 - 18.0 G/DL) 11.1 L Hct (42 - 52 %) 33.0 L MCV (80.0 - 94.0 FL) 98.0 H MCH (27.0 - 31.0 PG) 33.0 H MCHC (33.0 - 37.0 G/DL) 33.7 RDW (11.5 - 14.5 %) 13.9 Plt Count (130 - 400 /CUMM) 154 MPV (7.4 - 10.4 FL) 6.3 L Gran % (42.2 - 75.2 %) 81.2 H Lymphocytes % (20.5 - 51.1 %) 9.5 L Monocytes % (1.7 - 9.3 %) 9.3 Eosinophils % (0 - 5 %) 0 Basophils % (0.0 - 2.0 %) 0 Absolute Granulocytes (1.4 - 6.5 /CUMM) 5.1 Absolute Lymphocytes (1.2 - 3.4 /CUMM) 0.6 L Absolute Monocytes (0.10 - 0.60 /CUMM) 0.6 Absolute Eosinophils (0.0 - 0.7 /CUMM) 0 Absolute Basophils (0.0 - 0.2 /CUMM) 0 Urines Ur Random Creatinine (mg/dL) 58.2 Ur Random Sodium (30 - 90 mmol/L) 36 Ur Random Potassium (mmol/L) 49.5 Fraction Sodium Excret (<1% %) 0.5 11/08 11/08 11/08 1105 1058 1008 Chemistry Sodium (137 - 145 mmol/L) 119 *L Potassium (3.5 - 5.1 mmol/L) 4.7 Chloride (98 - 107 mmol/L) 85 L Carbon Dioxide (22 - 30 mmol/L) 24 Anion Gap (5 - 16) 10 BUN (9 - 20 mg/dL) 20 Creatinine (0.7 - 1.2 mg/dL) 0.9 Estimated GFR (>60 ml/min) > 60 Glucose (65 - 99 mg/dL) 120 H Calcium (8.4 - 10.2 mg/dL) 8.4 Phosphorus (2.5 - 4.5 mg/dL) 4.1 Magnesium (1.6 - 2.3 mg/dL) 1.9 Total Bilirubin (0.2 - 1.3 mg/dL) 0.4 AST (17 - 59 U/L) 30 ALT (21 - 72 U/L) 37 Albumin (3.5 - 5.0 g/dL) 3.7 Serology Virus Culture Pending Toxicology Urine Opiates Screen (>2000 NG/ML) < 100.00 Methadone Screen (>300 NG/ML) < 40 Barbiturate Screen (>200 NG/ML) < 60 Ur Phencyclidine Scrn (>25 NG/ML) < 6.00 Amphetamines Screen (>1000 NG/ML) 238 U Benzodiazepines Scrn (>200 NG/ML) < 85 Urine Cocaine Screen (>300 NG/ML) < 50 Urine Cannabis Screen (>50 NG/ML) < 5.00 Urines Urine Osmolality (300 - 1000 MOSM/KG) 448 Ur Random Creatinine (mg/dL) 103.9 Ur Random Sodium (30 - 90 mmol/L) 25 L Ur Random Potassium (mmol/L) 81.8 Fraction Sodium Excret (<1% %) 0.2 11/08 11/08 0837 0655 Chemistry Sodium (137 - 145 mmol/L) 117 *L Potassium (3.5 - 5.1 mmol/L) 5.3 H Chloride (98 - 107 mmol/L) 85 L Carbon Dioxide (22 - 30 mmol/L) 25 Anion Gap (5 - 16) 7 BUN (9 - 20 mg/dL) 20 Creatinine (0.7 - 1.2 mg/dL) 0.8 Estimated GFR (>60 ml/min) > 60 BUN/Creatinine Ratio (7 - 25 %) 25.0 Glucose (65 - 99 mg/dL) 108 H Serum Osmolality (285 - 295 MOSM/KG) 252 L Calcium (8.4 - 10.2 mg/dL) 8.1 L Total Bilirubin (0.2 - 1.3 mg/dL) 0.5 AST (17 - 59 U/L) 30 ALT (21 - 72 U/L) 35 Alkaline Phosphatase (< 127 U/L) 68 Troponin I (<0.11 ng/ml) 0.03 [id number] Pept (<125 pg/mL) 1770 H Total Protein (6.3 - 8.2 g/dL) 6.1 L Albumin (3.5 - 5.0 g/dL) 3.4 L Globulin (1.9 - 4.2 gm/dL) 2.7 Albumin/Globulin Ratio (1.1 - 2.2 %) 1.3 Lipase (23 - 300 U/L) 52 TSH (0.270 - 4.200 uIU/mL) 1.090 Free T4 (0.78 - 2.44 ng/dL) 0.86 Hematology CBC w Diff MAN DIFF ORDERED WBC (4.8 - 10.8 /CUMM) 6.2 RBC (4.70 - 6.10 /CUMM) 3.26 L Hgb (14.0 - 18.0 G/DL) 10.8 L Hct (42 - 52 %) 31.6 L MCV (80.0 - 94.0 FL) 96.7 H MCH (27.0 - 31.0 PG) 33.1 H MCHC (33.0 - 37.0 G/DL) 34.3 RDW (11.5 - 14.5 %) 13.9 Plt Count (130 - 400 /CUMM) 166 MPV (7.4 - 10.4 FL) 6.5 L Gran % (42.2 - 75.2 %) 83.8 H Lymphocytes % (20.5 - 51.1 %) 6.8 L Monocytes % (1.7 - 9.3 %) 9.1 Eosinophils % (0 - 5 %) 0.2 Basophils % (0.0 - 2.0 %) 0.1 Absolute Granulocytes (1.4 - 6.5 /CUMM) 5.2 Absolute Lymphocytes (1.2 - 3.4 /CUMM) 0.4 L Absolute Monocytes (0.10 - 0.60 /CUMM) 0.6 Absolute Eosinophils (0.0 - 0.7 /CUMM) 0 Absolute Basophils (0.0 - 0.2 /CUMM) 0 Platelet Estimate (ADEQUATE) ADEQUATE Hypochromic-Microcytic 1+ Poikilocytosis 1+ Anisocytosis 1+ Toxicology Serum Alcohol (<10 MG/DL) < 10.0 Urines Urinalysis LIGHT H Urine Color (YEL,AMB,STR) YEL Urine Clarity (CLEAR) CLEAR Urine pH (5.0 - 8.0) 6.0 Ur Specific [place] (1.001 - 1.035) 1.020 Urine Protein (NEG,<30 MG/DL) 100 H Urine Ketones (NEG) TRACE H Urine Nitrite (NEG) NEG Urine Bilirubin (NEG) NEG Urine Urobilinogen (0.1 - 1.0 EU/dl) 0.2 Ur Leukocyte Esterase (NEG) NEG Ur Microscopic SEDIMENT EXAMINED Urine RBC (0 - 5 /HPF) 3-5 Hyaline Casts (0/LPF) 1-3 H Urine Mucus (FEW,NONE) MOD H Urine Hemoglobin (NEG) SMALL H Urine Glucose (N MG/DL) NEG 11/08 0652 Serology Virus Culture Pending Imaging/Other Studies: CXR: IMPRESSION: No evidence of pneumonia or pleural effusion. Mild oligemia in the bilateral lungs could reflect underlying COPD or emphysema. The lungs and pleural spaces are clear.
--- NOTE | 2017-11-09 10:30 | PN- Housestaff ---
See Addendum Subjective Follow-up For: Hyponatremia COPD Exacerbation urine strep pneumo positive. Influenza B positive Complaints: no complaints Subjective: Patient was seen and examined at bedside. Slept comfortably overnight. Offers no complaints at this time. Review of Systems Constitutional: Reports: no symptoms. Objective Last 24 Hrs of Vital Signs/I&O Vital Signs Date Time Temp Pulse Resp B/P B/P Pulse O2 O2 Flow FiO2 Mean Ox Delivery Rate 11/09 0844 92 Nasal 2.0L Cannula 11/09 08 98.4 86 24 160/80 11/09 0800 92 Nasal 2.0L Cannula 11/09 08 98.4 86 24 160/80 92 Nasal 2.0L Cannula 11/09 0600 98.7 76 26 168/85 11/09 0442 84 170/84 11/09 0442 84 170/84 11/09 0400 98.7 74 18 164/86 11/09 0400 98 Nasal 2.0L Cannula 11/09 0200 99.1 72 28 174/92 11/09 0000 99.1 70 19 154/88 11/09 0000 97 Nasal 2.0L Cannula 11/09 0000 99.1 70 19 154/88 97 Nasal 2.0L Cannula 11/08 2200 99.4 90 21 178/80 11/08 2000 99.4 85 27 169/78 11/08 1908 87 187/92 11/08 1904 Nasal 2.0L Cannula 11/08 1800 86 26 171/85 11/08 1600 98.3 88 24 178/72 11/08 1600 98.3 88 24 178/82 92 Room Air 11/08 1600 92 Room Air 11/08 1458 85 174/81 11/08 1400 84 22 191/89 Intake & Output 11/09 1600 11/09 0800 11/09 0000 Intake Total 30 700 Output Total 650 850 Balance -620 -150 Intake, IV 400 Intake, Oral 30 300 Output, Urine 650 850 Physical Exam General Appearance: Alert, Oriented X3, Cooperative, Mild Distress Skin: No Rashes, No Breakdown Skin Temp/Moisture Exam: Warm/Dry Sepsis Skin Exam (color): Normal for Ethnicity HEENT: Atraumatic Cardiovascular: Normal S1, Normal S2, No Murmurs Lungs: Normal Air Movement, wheezing Abdomen: Soft, No Tenderness Neurological: Normal Speech Extremities: No Edema Last 24 Hrs of Lab/Mick Results Last 24 Hrs of Labs/Mics: Laboratory Tests 11/09/17 0435: Anion Gap 8, Estimated GFR > 60, Glucose 126 H, Calcium 8.4, Phosphorus 4.5, Magnesium 2.1, Total Bilirubin 0.1 L, AST 29, ALT 42, Albumin 3.3 L, CBC w Diff NO MAN DIFF REQ, RBC 3.37 L, MCV 98.0 H, MCH 33.0 H, MCHC 33.7, RDW 13.9 , MPV 6.3 L, Gran % 81.2 H, Lymphocytes % 9.5 L, Monocytes % 9.3, Eosinophils % 0, Basophils % 0, Absolute Granulocytes 5.1, Absolute Lymphocytes 0.6 L, Absolute Monocytes 0.6, Absolute Eosinophils 0, Absolute Basophils 0 11/09/17 0005: 11/08/17 2000: 11/08/17 1830: Ur Random Creatinine 58.2, Ur Random Sodium 36, Ur Random Potassium 49.5, Fraction Sodium Excret 0.5 Assessment/Plan Assessment: The patient is a 67-year-old man with a past medical history of resistant hypertension, COPD, BPH, osteoarthritis depression and anxiety. He presents with 2 days of worsening shortness of breath, myalgias and generalized weakness. Assessment and Plan: Hyponatremia: * Improving. Goal correction is 6-8meq/24 hours. * Start Sodium Chloride tablets 3g TID (equivalent to 1 bag of 0.9% NS) * Monitor serial urine lytes. * Will avoid IV fluids in the context of hypertension. * Monitor sodium every 6-8 hours and avoid overcorrection. * Nephrology recs appreciated. Resistant Hypertension: * Continue carvedilol 18.75 mg a.m. and 25 mg p.m. * Hold hydrochlorothiazide for now due to hyponatremia. * Continue doxacin 8mg. * Was given Amlodipine 10mg today for high blood pressure. * Can restart Losartan 50mg from tomorrow. Was previously held in the context of hyperkalemia. COPD Exacerbation: * Continue oxygen supplementation to target oxygen sats >92%. Currently at 2.0L. * TRC nebs as needed. * Tamiflu for influenza * Urine strep pneumo was positive. * Continue IV Ceftriaxone 1gm daily and Azithromycin 500mg daily. * Continue Solu-Medrol IV 40mg BID. Will start on a prednisone taper from tomorrow. * Continue nicotine patch 21 mg daily History of Depression and Anxiety: * Bupropion unlikely to be the cause of his hyponatremia * Continue bupropion ER 150 mg daily * Continue Ativan 0.5 mg BID prn for anxiety History of BPH: * Continue Doxacin 8 mg at bedtime Osteoarthritis * Tylenol as needed when necessary for pain * Can use NSAIDS if needed. DVT Prophylaxis: SC Lovenox Diet: Regular diet Code Status: Full Code Problem List: 1. Hyponatremia Pain Ratin Pain Location: none Pain Goal: Remain pain free Pain Plan: none Tomorrow's Labs & Rationales: CBC, BEP
--- NOTE | 2017-11-09 17:56 | Transfer of Care Summary ---
See Addendum Hospital Course Course Hospital Course: HPI: The patient is a 67-year-old man with a past medical history of resistant hypertension, COPD, BPH, osteoarthritis depression and anxiety. He presented with 2 days of worsening shortness of breath, myalgias and generalized weakness. Interval Events: On admission patient was found to be positive for Influenza B and started on a course of Tamiflu. His urine was also found to be positive for Strep Pnemo antigen. He was started on Ceftriaxone. He has received IV Solu- Medrol 40mg q12 for his COPD exacerbation which has been switched to Prednisone starting from 11/10. His labs demonstrated severe hyponatremia on admission (117). A nephro consult was obtained and he was started on a fluid restriction of 800cc a day and started on salt tablets 3g TID (equivalent to 0.9% NS 1L). Per Nephro his fluid restriction of 800cc needs to be continued until Na level is up to 130 and then it can be increased to 1000-1500cc. Goal correction is 6-8meq/24 hours. Patient has a history of resistant hypertension. His HCTZ has been put on hold due to its potential to exacerbate/cause hyponatremia. Consult nephro before restarting the medication even when serum sodium normalizes. His Losartan was on hold as he was hyperkalemic on admission which has now resolved. During his brief ICU stay his blood pressure was elevated to 170 systolic for which he received 10mg Amlodipine (in addition to his doxacin and carvedilol). His blood pressure will need to be monitored. Consider restarting Losartan in the morning. Mechanical ventilation: None NIPPV: No Antibiotics: Ceftriaxone Catheters/Lines: Peripheral IV Assessment/Plan: Assessment: Hyponatremia Resistant Hypertension COPD Exacerbation Urine Positive for Strep Pneumo Influenza B History of Depression and Anxiety History of BPH Osteoarthritis Plan: * For hyponatremia Goal correction is 6-8meq/24 hours. * Continue salt tablets * Fluid restriction 800 ml/day till Na 130 then relax 8685-1747 ml/d * Continue home bp medications * Consider restarting Losartan which was held on admission due to hyperkalemia. * Monitor blood pressure. * Hold hydrochlorothiazide for now due to hyponatremia * Continue IV Ceftriaxone 1gm daily for Strep pneumo * Continue Prednisone taper for COPD exacerbation * Tamiflu for influenza * Continue all other home meds. * DVT Prophylaxis: SC Lovenox * Diet: Regular * Code: Full
[2017-11-10 07:35] VITALS: BP 170/90
--- NOTE | 2017-11-10 07:36 | PN- Housestaff ---
See Addendum Subjective Follow-up For: Hyponatremia COPD Exacerbation urine strep pneumo positive. Influenza B positive Subjective: No overnight event. Patient is pending discharge today without specific complaint. Review of Systems Constitutional: Reports: see HPI. Objective Last 24 Hrs of Vital Signs/I&O Vital Signs Date Time Temp Pulse Resp B/P B/P Pulse O2 O2 Flow FiO2 Mean Ox Delivery Rate 11/10 1108 95 Room Air Room Air 11/10 0832 95 Room Air 11/10 0800 70 170/80 11/10 0735 98.7 93 18 170/90 91 Room Air 11/10 0000 Room Air 11/09 2056 97.8 85 18 160/80 92 Room Air 11/09 2000 99.4 88 18 174/72 11/09 1950 88 172/74 11/09 1949 95 Room Air Room Air 11/09 1600 99.8 72 22 122/60 98 Room Air 11/09 1335 94 Room Air Room Air Intake & Output 11/10 1600 11/10 0800 11/10 0000 Intake Total 175 90 Output Total 0 Balance 175 90 Intake, IV 10 Intake, Oral 175 80 Number 0 Bowel Movements Output, Urine 0 Physical Exam General Appearance: Alert, Oriented X3, Cooperative, No Acute Distress Cardiovascular: Regular Rate Lungs: Clear to Auscultation, Normal Air Movement Abdomen: Normal Bowel Sounds, Soft, No Tenderness Neurological: Normal Speech Extremities: No Edema, Normal Pulses Current Medications: Current Medications Sig/[place] Start time Last Medication Dose Route Stop Time Status Admin Acetaminophen 650 MG Q6P PRN 11/08 1030 AC PO Albuterol Sulfate 3 ML BID 11/10 1000 AC 11/10 INH 1106 Albuterol Sulfate 3 ML TID 11/08 1656 DC 11/09 INH 1945 Amlodipine Besylate 5 MG DAILY 11/09 1000 AC 11/10 PO 0800 Aspirin Buffered 81 MG DAILY 11/08 1030 AC 11/10 PO 0800 Azithromycin 250 MG DAILY 11/09 1000 DC 11/09 PO 0941 Carvedilol 18.75 MG DAILY 11/09 1000 AC 11/10 PO 0800 Carvedilol 25 MG AT BEDTIME 11/08 2200 AC 11/09 PO 1950 Ceftriaxone Sodium 1,000 MG DAILY 11/08 1100 AC 11/10 IV 0801 Cholecalciferol 1,000 IU DAILY 11/08 1030 AC 02/13 PO 0800 Doxazosin Mesylate 8 MG AT BEDTIME 11/08 2199 AC 11/09 PO 1950 Enoxaparin Sodium 40 MG DAILY 11/08 1025 AC 11/09 SC 0940 Lorazepam 0.5 MG BID PRN 11/08 2199 AC 11/09 PO 11/15 2158 1950 Methylprednisolone 40 MG Q12 11/09 1300 DC 11/09 IV 2056 Morphine Sulfate 2 MG Q4P PRN 11/08 1030 AC IV Nicotine 21 MG DAILY 11/09 1000 AC 11/10 TOP 0801 Oseltamivir Phosphate 75 MG BID 11/08 1430 AC 11/10 PO 11/12 1429 0801 Prednisone 10 MG DAILY 11/16 1000 AC PO 11/17 1001 Prednisone 20 MG DAILY 11/14 1000 AC PO 11/15 1001 Prednisone 30 MG DAILY 11/12 1000 AC PO 11/13 1001 Prednisone 40 MG DAILY 11/10 1000 CAN PO 11/18 0959 Prednisone 40 MG DAILY 11/10 1000 AC 11/10 PO 11/11 1001 0800 Sodium Chloride 3,000 MG TID 11/09 1000 AC 11/10 PO 0801 Tiotropium [place] 1 PUF DAILY 11/09 1000 AC 11/10 INH 1011 Last 24 Hrs of Lab/Mick Results Last 24 Hrs of Labs/Mics: Laboratory Tests 11/10/17 0625: Anion Gap 9, Estimated GFR > 60, Glucose 165 H, Calcium 8.9, Phosphorus 4.3, Magnesium 2.2, Total Bilirubin 0.2, AST 27, ALT 39, Albumin 3.5, CBC w Diff NO MAN DIFF REQ, RBC 3.64 L, MCV 98.9 H, MCH 33.0 H, MCHC 33.4, RDW 13.7, MPV 6.8 L, Gran % 83.1 H, Lymphocytes % 10.0 L, Monocytes % 6.7, Eosinophils % 0, Basophils % 0.2, Absolute Granulocytes 4.2, Absolute Lymphocytes 0.5 L, Absolute Monocytes 0.3, Absolute Eosinophils 0, Absolute Basophils 0 11/09/17 1400: Ur Random Creatinine 188.7, Ur Random Sodium 41, Ur Random Potassium 35.8, Fraction Sodium Excret 0.1 11/09/17 1240: Anion Gap 7, Estimated GFR > 60, BUN/Creatinine Ratio 31.1 H Assessment/Plan Assessment: The patient is a 67-year-old man with a past medical history of resistant hypertension, COPD, BPH, osteoarthritis depression and anxiety. He presents with 2 days of worsening shortness of breath, myalgias and generalized weakness. Assessment and Plan: Hyponatremia: * Improving to 134 on latest lab. * Nephrology recs appreciated. Will discharge patient with 1500mL fluid restriction. Instruction given Resistant Hypertension: * Continue carvedilol 18.75 mg a.m. and 25 mg p.m. * Hold hydrochlorothiazide for now due to hyponatremia. Will continue to hold after discharge. * Continue doxacin 8mg. * Was given Amlodipine 10mg today for high blood pressure. Will discharge at 7.5mg dose. * Will discharge at Losartan 50mg BID restart. COPD Exacerbation: * Continue oxygen supplementation to target oxygen sats >92%. Currently at 2.0L. * TRC nebs as needed. Ventolin inhaler provided for discharge. * Tamiflu for influenza, 2 salvatore days left * Urine strep pneumo was positive. * Continue IV Ceftriaxone 1gm daily and Azithromycin 500mg daily. Will give PO ABx fr 2 more days after discharge * Continue Prednisone PO 40mg. Will start on a prednisone taper on discharge. * Continue nicotine patch 21 mg daily History of Depression and Anxiety: * Bupropion unlikely to be the cause of his hyponatremia. Patient was held on this med during inpatient for the cause of hyponatremia. Will resart upon discharge. * Continue Ativan 0.5 mg BID prn for anxiety History of BPH: * Continue Doxacin 8 mg at bedtime Osteoarthritis * Tylenol as needed when necessary for pain * Can use NSAIDS if needed. DVT Prophylaxis: [place] Lovenox Diet: Regular diet Code Status: Full Code Problem List: 1. COPD with acute exacerbation 2. Hypertension Pain Ratin Pain Location: NA Pain Goal: Remain pain free Pain Plan: see AP Tomorrow's Labs & Rationales: NA
[2017-11-10 08:00] VITALS: BP 170/80
[2017-11-10 08:33] LABS: ABSOLUTE BASOPHIL COUNT 0 /CUMM (0.0-0.2); ABSOLUTE EOSINOPHIL COUNT 0 /CUMM (0.0-0.7); ABSOLUTE GRANULOCYTE CT 4.2 /CUMM (1.4-6.5); ABSOLUTE LYMPH COUNT 0.5 /CUMM (1.2-3.4); ABSOLUTE MONOCYTE COUNT 0.3 /CUMM (0.10-0.60); BASOPHIL % 0.2 % (0.0-2.0); EOSINOPHIL % 0 % (0-5); MEAN CORPUSCULAR HGB CONC 33.4 G/DL (33.0-37.0); MEAN CORPUSCULAR VOLUME 98.9 FL (80.0-94.0); MEAN PLATELET VOLUME 6.8 FL (7.4-10.4); PLATELET COUNT 175 /CUMM (130-400); RBC DISTRIBUTION WIDTH 13.7 % (11.5-14.5); RED BLOOD CELL CT 3.64 /CUMM (4.70-6.10)
--- NOTE | 2017-11-10 08:51 | Discharge Summary ---
Visit Information Visit Dates Admission Date: 11/08/17 Discharge Date: 11/10/17 Hospital Course Course Attending Physician: Lupe Boswell MD Primary Care Physician: Cari Collier MD Hospital Course: Mr. Yoder is a 67-year-old man with a past medical history of difficult to control hypertension, COPD, BPH, osteoarthritis depression and anxiety. He presented with 2 days of worsening shortness of breath, myalgias and generalized weakness. His symptoms started 2 days prior with a dry itchy throat along with cough productive of phlegm (unknown color) and nasal congestion with rhinorrhea. He also noticed chills and a low-grade fever measured at 100 Fahrenheit on Thursday. In addition he had shortness of breath with wheezing which progressively worsened yesterday resulting in him presenting to the hospital early this morning. The patient has noticed decreased appetite with poor by mouth intake, along with bloating but denies abdominal pains, diarrhea or constipation. He had one normal bowel movement a day prior this admission which was nonbloody. In addition he denied dysuria or hematuria but did have some nocturia from his BPH. He took Mucinex and Advil with some relief of symptoms for 2 days. Of note patient tend to have borderline low sodium but denies any recent change in his diuretic regimen (hydrochlorothiazide). He had also been on a stable dose of Wellbutrin with no recent changes. His hyponatremia could be from combination of poor by mouth intake from his recent febrile illness and his diuretic medication hydrochlorothiazide. In addition his cough and shortness of breath is concerning for COPD exacerbation triggered by viral upper respiratory infection. A developing Pneumonia is also in the differential. On admission, patient VS: T 100.7, P 84, R 22, BP 169/80, PO 95% His labs demonstrated severe hyponatremia on admission (117), positive for Influenza B, positive for Strep Pnemo antigen. Patient was admitted to ICU and upon stablization, transferred to general medicine for following managements. 1. Hyponatremia His labs demonstrated severe hyponatremia on admission (117). A nephro consult was obtained and he was started on a fluid restriction of 800cc a day and started on salt tablets 3g TID (equivalent to 0.9% NS 1L). Per Nephro his fluid restriction of 800cc needs to be continued until Na level is up to 130 and then it can be increased to 1000-1500cc. Goal correction is 6-8meq/24 hours. Patient' s sodium was corrected to 134 prior discharge. Patient was advised to maintain a 1500cc daily fluid restriction. 2. Resistant Hypertension Upon admission, patient's HCTZ was held due topotential to exacerbate/cause hyponatremia. His Losartan was on hold as he was hyperkalemic on admission which had resolved to 4.5 prior discharge. During his brief ICU stay his blood pressure was elevated to 170 systolic for which he received 10mg Amlodipine (in addition to his doxacin and carvedilol). Patient was advised to continue to hold HCTZ and losartan after discharge, and continue carvedilol and Amlodipine 7.5mg for blood pressure control. 3. COPD exacerbation On admission patient was found to be positive for Influenza B and started on a course of Tamiflu. His urine was also found to be positive for Strep Pnemo antigen. He was started on Ceftriaxone. He has received IV Solu-Medrol 40mg q12 for his COPD exacerbation which has been switched to Prednisone starting from . He was discharged with Oral prednisone tapering. 4. Depression and anxiety Patient has been on bupropion for a long time on stable dose so this is unlikely to be the cause of his hyponatremia. Patient was continued on bupropion ER 150 mg by mouth daily, and Ativan 0.5 mg by mouth twice a day when necessary for anxiety 5. BPH Patient was continued on Cardura 8 mg at bedtime 6. Osteoarthritis Patient was given Tylenol as needed when necessary for pain, NSAIDs were avoided. DVT prophylaxis-subcutaneous Lovenox 40 minute and daily CODE STATUS: Patient is full code Allergies: Coded Allergies: No Known Allergies (12/28/16) Pertinent Lab Results: SERVICE DATE: 11/08/17 EXAM TYPE: RAD - XRY-PORTABLE CHEST XRAY IMPRESSION: No evidence of pneumonia or pleural effusion. Mild oligemia in the bilateral lungs could reflect underlying COPD or emphysema. The lungs and pleural spaces are clear. Laboratory Tests 11/10 0592 Chemistry Sodium (137 - 145 mmol/L) 134 L Potassium (3.5 - 5.1 mmol/L) 4.5 Chloride (98 - 107 mmol/L) 99 Carbon Dioxide (22 - 30 mmol/L) 27 Anion Gap (5 - 16) 9 BUN (9 - 20 mg/dL) 28 H Creatinine (0.7 - 1.2 mg/dL) 0.8 Estimated GFR (>60 ml/min) > 60 Glucose (65 - 99 mg/dL) 165 H Calcium (8.4 - 10.2 mg/dL) 8.9 Phosphorus (2.5 - 4.5 mg/dL) 4.3 Magnesium (1.6 - 2.3 mg/dL) 2.2 Total Bilirubin (0.2 - 1.3 mg/dL) 0.2 AST (17 - 59 U/L) 27 ALT (21 - 72 U/L) 39 Albumin (3.5 - 5.0 g/dL) 3.5 Hematology CBC w Diff NO MAN DIFF REQ WBC (4.8 - 10.8 /CUMM) 5.0 RBC (4.70 - 6.10 /CUMM) 3.64 L Hgb (14.0 - 18.0 G/DL) 12.0 L Hct (42 - 52 %) 36.0 L MCV (80.0 - 94.0 FL) 98.9 H MCH (27.0 - 31.0 PG) 33.0 H MCHC (33.0 - 37.0 G/DL) 33.4 RDW (11.5 - 14.5 %) 13.7 Plt Count (130 - 400 /CUMM) 175 MPV (7.4 - 10.4 FL) 6.8 L Gran % (42.2 - 75.2 %) 83.1 H Lymphocytes % (20.5 - 51.1 %) 10.0 L Monocytes % (1.7 - 9.3 %) 6.7 Eosinophils % (0 - 5 %) 0 Basophils % (0.0 - 2.0 %) 0.2 Absolute Granulocytes (1.4 - 6.5 /CUMM) 4.2 Absolute Lymphocytes (1.2 - 3.4 /CUMM) 0.5 L Absolute Monocytes (0.10 - 0.60 /CUMM) 0.3 Absolute Eosinophils (0.0 - 0.7 /CUMM) 0 Absolute Basophils (0.0 - 0.2 /CUMM) 0 Disposition Summary Disposition Principal Diagnosis: 1. Hyponatremia 2. Resistant Hypertension 3. COPD exacerbation 4. Depression and anxiety 5. BPH 6. Osteoarthritis Additional Diagnosis: As above Discharge Disposition: home or self care Discharge Instructions General Discharge Information Code Status: Full Code Patient's Diet: Regular Diet Patient's Activity: As tolerated Follow-Up Instructions/Appts: - Please continue to practice fluid restriction at 1500mL daily. - Please follow up with your primary care physician within 1-2 week of discharge. Inform your primary care physician of this admission to [facility]. - Please ask your primary care physician regarding chest CT without contrast. - Continue your current medications per discharge instructions. - Please watch for these problems: Fever, Chills, Nausea, Vomiting, Shortness of Breath, Productive Cough, Chest Pain/Discomfort, Abdominal Pain, Active Bleeding or Bloody urine/stool. Medications at Discharge Discharge Medications: Stop taking the following medications: Bupropion HCl (Bupropion XL) 150 MG TAB.ER.24H ORAL Every Morning Qty = 30 Losartan Potassium (Losartan Potassium) 50 MG TABLET ORAL DAILY Qty = 60 Hydrochlorothiazide (Hydrochlorothiazide) 12.5 MG CAPSULE ORAL DAILY Qty = 30 Carvedilol (Carvedilol) 12.5 MG TABLET ORAL As Directed Qty = 120 Continue taking these medications: Tiotropium [place] (Spiriva) 18 MCG CAP.W.DEV 1 Capsule Inhale through mouth DAILY Qty = 30 Comments: Last Taken: 11/10/17 Time: 1015AM Lorazepam (Lorazepam) 0.5 MG TABLET 1 Tablet ORAL TWICE DAILY Qty = 60 Comments: Last Taken: 11/09/17 Time: 1900PM Doxazosin Mesylate (Doxazosin Mesylate) 8 MG TABLET 1 Tablet ORAL Every night Qty = 30 Comments: Last Taken: 11/09/17 Time: 2000PM Aspirin (Ecotrin*) 81 MG TABLET.DR 1 Tablet ORAL DAILY Comments: Last Taken:11/10/17 Time: 0800AM Cholecalciferol (Vitamin D3) (Vitamin D) 2,000 UNIT TABLET 1 Tablet ORAL DAILY Comments: Last Taken: 11/10/17 Time: 0800AM Start taking the following new medications: Prednisone (Prednisone) 10 MG TABLET 1 Tablet ORAL DAILY Qty = 16 No Refills Instructions: . Comments: 11/11: Take 4 tablets, once daily 11/12-: Take 3 tablets, once daily 11/14-: Take 2 tablets, once daily 11/16-: Take 1 tablet, once daily 40MG PO GIVEN 11/10/17 @0800AM Amlodipine (Norvasc) 2.5 MG TABLET 3 Tablet ORAL DAILY Qty = 60 No Refills Instructions: . Comments: Last Taken: 11/10/17 Time: 0800AM Carvedilol (Carvedilol) 25 MG TABLET 25 Milligram ORAL AT BEDTIME Qty = 30 No Refills Instructions: . Comments: Last Taken:11/09/17 Time: 2200PM Carvedilol (Carvedilol) 6.25 MG TABLET 18.75 Milligram ORAL DAILY Qty = 60 No Refills Instructions: . Comments: Last Taken: 11/10/17 Time: 0800AM Albuterol Sulfate (Ventolin Hfa) 90 MCG HFA.AER.AD 2 Puff Inhale through mouth EVERY 4-6 HOURS NEEDED as needed for Shortness of Breath Qty = 1 No Refills Instructions: . Comments: NOT GIVEN INHOSPITAL Oseltamivir Phosphate (Tamiflu) 75 MG CAPSULE 75 Milligram ORAL TWICE DAILY Qty = 5 No Refills Instructions: . Comments: 11/10: Please take 1 tablet at evening 11/11-: Pleast take 1 tablet, twice daily 11/13: STOP GIVEN 11/10/17 @0800AM Azithromycin (Zithromax) 250 MG TABLET 1 Tablet ORAL As Directed Qty = 4 No Refills Instructions: . Comments: 11/11-: Please take 1 tablet, once daily Cefpodoxime Proxetil (Cefpodoxime Proxetil) 200 MG TABLET 1 Tablet ORAL TWICE DAILY Qty = 4 No Refills Instructions: . Comments: 11/11-: Take 1 tablet, twice daily NOT GIVEN IN HOSPITAL Copies To: Amira POSADA,Cari Bertrand Attending MD Review Statement Documenting Attending: Jaun Holguin MD Other Findings: The patient was seen and agree with the plan of care as outlined. 1.5L fluid restriction, agree with altering psych meds- Amlodipine, Cardura, Carvedilol. Follow-up BEB and BP in 2-3 days.
--- NOTE | 2017-11-10 08:51 | Patient Discharge Instructions ---
Discharge Instructions General Discharge Information You were seen/treated for: Hyponatremia COPD Exacerbation urine strep pneumo positive. Influenza B positive Special Instructions: - Please continue to practice fluid restriction at 1500mL daily. - Please follow up with your primary care physician within 1-2 week of discharge. Inform your primary care physician of this admission to [facility]. - Please ask your primary care physician regarding chest CT without contrast. - Continue your current medications per discharge instructions. - Please watch for these problems: Fever, Chills, Nausea, Vomiting, Shortness of Breath, Productive Cough, Chest Pain/Discomfort, Abdominal Pain, Active Bleeding or Bloody urine/stool. Diet Continue normal diet: Yes Recommended Diet: Fluid restriction at 1500mL Activity Full Activity/No Limits: Yes Acute Coronary Syndrome Inclusion Criteria At DC or during hospital stay patient has or had the following: ACS DIAGNOSIS No Discharge Core Measures Meds if any: Prescribed or Continued at Discharge Meds if any: NOT Prescribed or Continued at Discharge Congestive Heart Failure Inclusion Criteria At DC or during hospital stay patient has or had the following: CHF DIAGNOSIS No Discharge Core Measures Meds if any: Prescribed or Continued at Discharge Meds if any: NOT Prescribed or Continued at Discharge Cerebrovascular accident Inclusion Criteria At DC or during hospital stay patient has or had the following: CVA/TIA Diagnosis No Discharge Core Measures Meds if any: Prescribed or Continued at Discharge Meds if any: NOT Prescribed or Continued at Discharge Venous thromboembolism Inclusion Criteria VTE Diagnosis No VTE Type NONE VTE Confirmed by (Test) NONE Discharge Core Measures - Per Current guidelines, there needs to be overlap - treatment for the first 5 days of Warfarin therapy. - If discharged on Warfarin prior to 5 days of - overlap therapy, the patient will need to be - assessed for post discharge needs including - *Post discharge parental anticoagulation - *Warfarin and/or parental anticoagulation education - *Follow up date to check INR post discharge At least 5 days overlap therapy as Inpatient No Meds if any: Prescribed or Continued at Discharge Note: Overlap Therapy is Warfarin and Anticoagulant Meds if any: NOT Prescribed or Continued at Discharge
[2017-11-10 09:20] LABS: GRANULOCYTE % 83.1 % (42.2-75.2)
[2017-11-10] MEDS ORDERED: TAMIFLU75 M1 PO ×2 (10:43→11:47)
[2017-11-10] MEDS ORDERED: VENTOLIN HFA18 GM INH ×2 (10:58→11:47)
[2017-11-10] MEDS ORDERED: CARVEDILOL6.25 M1 PO ×2 (10:58→11:47)
[2017-11-10] MEDS ORDERED: NORVASC2.5 M1 PO ×2 (10:58→11:47)
[2017-11-10] MEDS ORDERED: CEFPODOXIME PR200 M2 PO ×2 (10:58→11:47)
[2017-11-10] MEDS ORDERED: PREDNISONE10 M2 PO ×2 (10:58→11:47)
[2017-11-10] MEDS ORDERED: CARVEDILOL25 M1 PO ×2 (10:58→11:47)
[2017-11-10] MEDS ORDERED: ZITHROMAX250 M2 PO ×2 (10:58→11:47)
--- NOTE | 2017-11-10 11:43 | PN- Nephrology ---
Assessment/Plan Assessment: Hyponatremia: improving - due to thiazide Suggestion: 1. relax fluid restriction 1500 ml/day 2. d/c NaCL tabs OK for d/c w outpt labs later this week No thiazide going forward Subjective Subjective: Feeling well No SOB No cough Anxious for d/c Objective Vital Signs and I&Os Vital Signs Date Time Temp Pulse Resp B/P B/P Pulse O2 O2 Flow FiO2 Mean Ox Delivery Rate 11/10 1108 95 Room Air Room Air 11/10 0832 95 Room Air 11/10 0800 70 170/80 11/10 0735 98.7 93 18 170/90 91 Room Air 11/10 0000 Room Air 11/09 2056 97.8 85 18 160/80 92 Room Air 11/09 2000 99.4 88 18 174/72 11/09 1950 88 172/74 11/09 1949 95 Room Air Room Air 11/09 1600 99.8 72 22 122/60 98 Room Air 11/09 1335 94 Room Air Room Air Intake & Output 11/10 1600 11/10 0400 11/09 1600 11/09 0400 11/08 1600 11/08 0400 Intake Total 175 90 660 700 530 Output Total 0 0092 415 9950 Balance 175 90 -390 -150 -1120 Intake, IV 10 30 400 350 Intake, Oral 175 80 630 300 180 Number 0 0 Bowel Movements Output, Urine 0 2217 882 1498 Patient 213 lb Weight Weight Bed scale Measurement Method Physical Exam General Appearance: well developed/nourished, no apparent distress, alert Head: atraumatic, normal appearance Ears, Nose, Throat: normal ENT inspection Respiratory: rhonchi, wheezing Cardiovascular: regular rate/rhythm Abdomen: soft, non-tender, no organomegaly Extremities: no edema Neurologic/Psychiatric: no motor/sensory deficits, awake, alert, oriented x 3, roller turner II-XII nml as tested Skin: intact Current Medications: Current Medications Sig/[place] Start time Last Medication Dose Route Stop Time Status Admin Acetaminophen 650 MG Q6P PRN 11/08 1030 AC PO Albuterol Sulfate 3 ML BID 11/10 1000 AC 11/10 INH 1106 Albuterol Sulfate 3 ML TID 11/08 1656 DC 11/09 INH 1945 Amlodipine Besylate 5 MG DAILY 11/09 1000 AC 11/10 PO 0800 Aspirin Buffered 81 MG DAILY 11/08 1030 AC 11/10 PO 0800 Azithromycin 250 MG DAILY 11/09 1000 DC 11/09 PO 0941 Carvedilol 18.75 MG DAILY 11/09 1000 AC 11/10 PO 0800 Carvedilol 25 MG AT BEDTIME 11/08 2200 AC 11/09 PO 1950 Ceftriaxone Sodium 1,000 MG DAILY 11/08 1100 AC 11/10 IV 0801 Cholecalciferol 1,000 IU DAILY 11/08 1030 AC 11/10 PO 0800 Doxazosin Mesylate 8 MG AT BEDTIME 11/08 2200 AC 11/09 PO 1950 Enoxaparin Sodium 40 MG DAILY 11/08 1025 AC 11/09 SC 0940 Lorazepam 0.5 MG BID PRN 11/08 2200 AC 11/09 PO 11/15 215 1950 Methylprednisolone 40 MG Q12 11/09 1300 DC 11/09 IV 2056 Morphine Sulfate 2 MG Q4P PRN 11/08 1030 AC IV Nicotine 21 MG DAILY 11/09 1000 AC 11/10 TOP 0801 Oseltamivir Phosphate 75 MG BID 11/08 1430 AC 11/10 PO 11/12 1429 0801 Prednisone 10 MG DAILY 11/16 1000 AC PO 11/17 1001 Prednisone 20 MG DAILY 11/14 1000 AC PO 11/15 1001 Prednisone 30 MG DAILY 11/12 1000 AC PO 11/13 1001 Prednisone 40 MG DAILY 11/10 1000 CAN PO 11/18 0959 Prednisone 40 MG DAILY 11/10 1000 AC 11/10 PO 11/11 1001 0800 Sodium Chloride 3,000 MG TID 11/09 1000 AC 11/10 PO 0801 Tiotropium [place] 1 PUF DAILY 11/09 1000 AC 11/10 INH 1011 Results Pertinent Lab Results: Laboratory Tests 11/10 11/09 11/09 0625 1400 1240 Chemistry Sodium (137 - 145 mmol/L) 134 L 128 L Potassium (3.5 - 5.1 mmol/L) 4.5 3.6 Chloride (98 - 107 mmol/L) 99 92 L Carbon Dioxide (22 - 30 mmol/L) 27 29 Anion Gap (5 - 16) 9 7 BUN (9 - 20 mg/dL) 28 H 28 H Creatinine (0.7 - 1.2 mg/dL) 0.8 0.9 Estimated GFR (>60 ml/min) > 60 > 60 BUN/Creatinine Ratio (7 - 25 %) 31.1 H Glucose (65 - 99 mg/dL) 165 H Calcium (8.4 - 10.2 mg/dL) 8.9 Phosphorus (2.5 - 4.5 mg/dL) 4.3 Magnesium (1.6 - 2.3 mg/dL) 2.2 Total Bilirubin (0.2 - 1.3 mg/dL) 0.2 AST (17 - 59 U/L) 27 ALT (21 - 72 U/L) 39 Albumin (3.5 - 5.0 g/dL) 3.5 Hematology CBC w Diff NO MAN DIFF REQ WBC (4.8 - 10.8 /CUMM) 5.0 RBC (4.70 - 6.10 /CUMM) 3.64 L Hgb (14.0 - 18.0 G/DL) 12.0 L Hct (42 - 52 %) 36.0 L MCV (80.0 - 94.0 FL) 98.9 H MCH (27.0 - 31.0 PG) 33.0 H MCHC (33.0 - 37.0 G/DL) 33.4 RDW (11.5 - 14.5 %) 13.7 Plt Count (130 - 400 /CUMM) 175 MPV (7.4 - 10.4 FL) 6.8 L Gran % (42.2 - 75.2 %) 83.1 H Lymphocytes % (20.5 - 51.1 %) 10.0 L Monocytes % (1.7 - 9.3 %) 6.7 Eosinophils % (0 - 5 %) 0 Basophils % (0.0 - 2.0 %) 0.2 Absolute Granulocytes (1.4 - 6.5 /CUMM) 4.2 Absolute Lymphocytes (1.2 - 3.4 /CUMM) 0.5 L Absolute Monocytes (0.10 - 0.60 /CUMM) 0.3 Absolute Eosinophils (0.0 - 0.7 /CUMM) 0 Absolute Basophils (0.0 - 0.2 /CUMM) 0 Urines Ur Random Creatinine (mg/dL) 188.7 Ur Random Sodium (30 - 90 mmol/L) 41 Ur Random Potassium (mmol/L) 35.8 Fraction Sodium Excret (<1% %) 0.1 11/09 11/09 11/08 11/08 0435 0005 1999 1830 Chemistry Sodium (137 - 145 mmol/L) 125 L 125 L 121 L 121 L Potassium (3.5 - 5.1 mmol/L) 4.3 Chloride (98 - 107 mmol/L) 92 L Carbon Dioxide (22 - 30 mmol/L) 25 Anion Gap (5 - 16) 8 BUN (9 - 20 mg/dL) 22 H Creatinine (0.7 - 1.2 mg/dL) 0.7 Estimated GFR (>60 ml/min) > 60 Glucose (65 - 99 mg/dL) 126 H Calcium (8.4 - 10.2 mg/dL) 8.4 Phosphorus (2.5 - 4.5 mg/dL) 4.5 Magnesium (1.6 - 2.3 mg/dL) 2.1 Total Bilirubin (0.2 - 1.3 mg/dL) 0.1 L AST (17 - 59 U/L) 29 ALT (21 - 72 U/L) 42 Albumin (3.5 - 5.0 g/dL) 3.3 L Hematology CBC w Diff NO MAN DIFF REQ WBC (4.8 - 10.8 /CUMM) 6.3 RBC (4.70 - 6.10 /CUMM) 3.37 L Hgb (14.0 - 18.0 G/DL) 11.1 L Hct (42 - 52 %) 33.0 L MCV (80.0 - 94.0 FL) 98.0 H MCH (27.0 - 31.0 PG) 33.0 H MCHC (33.0 - 37.0 G/DL) 33.7 RDW (11.5 - 14.5 %) 13.9 Plt Count (130 - 400 /CUMM) 154 MPV (7.4 - 10.4 FL) 6.3 L Gran % (42.2 - 75.2 %) 81.2 H Lymphocytes % (20.5 - 51.1 %) 9.5 L Monocytes % (1.7 - 9.3 %) 9.3 Eosinophils % (0 - 5 %) 0 Basophils % (0.0 - 2.0 %) 0 Absolute Granulocytes (1.4 - 6.5 /CUMM) 5.1 Absolute Lymphocytes (1.2 - 3.4 /CUMM) 0.6 L Absolute Monocytes (0.10 - 0.60 /CUMM) 0.6 Absolute Eosinophils (0.0 - 0.7 /CUMM) 0 Absolute Basophils (0.0 - 0.2 /CUMM) 0 Urines Ur Random Creatinine (mg/dL) 58.2 Ur Random Sodium (30 - 90 mmol/L) 36 Ur Random Potassium (mmol/L) 49.5 Fraction Sodium Excret (<1% %) 0.5 11/08 11/08 11/08 1105 1058 1008 Chemistry Sodium (137 - 145 mmol/L) 119 *L Potassium (3.5 - 5.1 mmol/L) 4.7 Chloride (98 - 107 mmol/L) 85 L Carbon Dioxide (22 - 30 mmol/L) 24 Anion Gap (5 - 16) 10 BUN (9 - 20 mg/dL) 20 Creatinine (0.7 - 1.2 mg/dL) 0.9 Estimated GFR (>60 ml/min) > 60 Glucose (65 - 99 mg/dL) 120 H Calcium (8.4 - 10.2 mg/dL) 8.4 Phosphorus (2.5 - 4.5 mg/dL) 4.1 Magnesium (1.6 - 2.3 mg/dL) 1.9 Total Bilirubin (0.2 - 1.3 mg/dL) 0.4 AST (17 - 59 U/L) 30 ALT (21 - 72 U/L) 37 Albumin (3.5 - 5.0 g/dL) 3.7 Serology Virus Culture Pending Toxicology Urine Opiates Screen (>2000 NG/ML) < 100.00 Methadone Screen (>300 NG/ML) < 40 Barbiturate Screen (>200 NG/ML) < 60 Ur Phencyclidine Scrn (>25 NG/ML) < 6.00 Amphetamines Screen (>1000 NG/ML) 238 U Benzodiazepines Scrn (>200 NG/ML) < 85 Urine Cocaine Screen (>300 NG/ML) < 50 Urine Cannabis Screen (>50 NG/ML) < 5.00 Urines Urine Osmolality (300 - 1000 MOSM/KG) 448 Ur Random Creatinine (mg/dL) 103.9 Ur Random Sodium (30 - 90 mmol/L) 25 L Ur Random Potassium (mmol/L) 81.8 Fraction Sodium Excret (<1% %) 0.2 11/08 11/08 0837 0655 Chemistry Sodium (137 - 145 mmol/L) 117 *L Potassium (3.5 - 5.1 mmol/L) 5.3 H Chloride (98 - 107 mmol/L) 85 L Carbon Dioxide (22 - 30 mmol/L) 25 Anion Gap (5 - 16) 7 BUN (9 - 20 mg/dL) 20 Creatinine (0.7 - 1.2 mg/dL) 0.8 Estimated GFR (>60 ml/min) > 60 BUN/Creatinine Ratio (7 - 25 %) 25.0 Glucose (65 - 99 mg/dL) 108 H Serum Osmolality (285 - 295 MOSM/KG) 252 L Calcium (8.4 - 10.2 mg/dL) 8.1 L Total Bilirubin (0.2 - 1.3 mg/dL) 0.5 AST (17 - 59 U/L) 30 ALT (21 - 72 U/L) 35 Alkaline Phosphatase (< 127 U/L) 68 Troponin I (<0.11 ng/ml) 0.03 Twt-C-[id number] Pept (<125 pg/mL) 1770 H Total Protein (6.3 - 8.2 g/dL) 6.1 L Albumin (3.5 - 5.0 g/dL) 3.4 L Globulin (1.9 - 4.2 gm/dL) 2.7 Albumin/Globulin Ratio (1.1 - 2.2 %) 1.3 Lipase (23 - 300 U/L) 52 TSH (0.270 - 4.200 uIU/mL) 1.090 Free T4 (0.78 - 2.44 ng/dL) 0.86 Hematology CBC w Diff MAN DIFF ORDERED WBC (4.8 - 10.8 /CUMM) 6.2 RBC (4.70 - 6.10 /CUMM) 3.26 L Hgb (14.0 - 18.0 G/DL) 10.8 L Hct (42 - 52 %) 31.6 L MCV (80.0 - 94.0 FL) 96.7 H MCH (27.0 - 31.0 PG) 33.1 H MCHC (33.0 - 37.0 G/DL) 34.3 RDW (11.5 - 14.5 %) 13.9 Plt Count (130 - 400 /CUMM) 166 MPV (7.4 - 10.4 FL) 6.5 L Gran % (42.2 - 75.2 %) 83.8 H Lymphocytes % (20.5 - 51.1 %) 6.8 L Monocytes % (1.7 - 9.3 %) 9.1 Eosinophils % (0 - 5 %) 0.2 Basophils % (0.0 - 2.0 %) 0.1 Absolute Granulocytes (1.4 - 6.5 /CUMM) 5.2 Absolute Lymphocytes (1.2 - 3.4 /CUMM) 0.4 L Absolute Monocytes (0.10 - 0.60 /CUMM) 0.6 Absolute Eosinophils (0.0 - 0.7 /CUMM) 0 Absolute Basophils (0.0 - 0.2 /CUMM) 0 Platelet Estimate (ADEQUATE) ADEQUATE Hypochromic-Microcytic 1+ Poikilocytosis 1+ Anisocytosis 1+ Toxicology Serum Alcohol (<10 MG/DL) < 10.0 Urines Urinalysis LIGHT H Urine Color (YEL,AMB,STR) YEL Urine Clarity (CLEAR) CLEAR Urine pH (5.0 - 8.0) 6.0 Ur Specific [place] (1.001 - 1.035) 1.020 Urine Protein (NEG,<30 MG/DL) 100 H Urine Ketones (NEG) TRACE H Urine Nitrite (NEG) NEG Urine Bilirubin (NEG) NEG Urine Urobilinogen (0.1 - 1.0 EU/dl) 0.2 Ur Leukocyte Esterase (NEG) NEG Ur Microscopic SEDIMENT EXAMINED Urine RBC (0 - 5 /HPF) 3-5 Hyaline Casts (0/LPF) 1-3 H Urine Mucus (FEW,NONE) MOD H Urine Hemoglobin (NEG) SMALL H Urine Glucose (N MG/DL) NEG 11/08 0652 Serology Virus Culture Pending
== END 2017-11-10 13:14 | DRG 194 ==
LOC: ERH 06:18 → CRI 08:13 → ERHI 08:13 → 2NB 08:13 → ENRESERV 09:36 → ENTRNSPT 10:20 → EDTRNSPT 10:44 → EDTRNSPTSTS 10:44 → CRI 10:46 → CMPTRNSPT 10:51 → 2NB 11-09 20:16 → ENPENDDIS 11-10 11:59 → 2NB 11-10 13:14
PROVIDERS: Emergency Medicine; Internal Medicine
DX: J10.1 Influenza due to other identified influenza virus with other respiratory manifestations (principal); J44.1 Chronic obstructive pulmonary disease with (acute) exacerbation; E87.1 Hypo-osmolality and hyponatremia; T50.2X5A Adverse effect of carbonic-anhydrase inhibitors, benzothiadiazides and other diuretics, initial encounter; I10 Essential (primary) hypertension; M19.90 Unspecified osteoarthritis, unspecified site; F17.210 Nicotine dependence, cigarettes, uncomplicated; F32.9 Major depressive disorder, single episode, unspecified; F41.9 Anxiety disorder, unspecified; N40.0 Benign prostatic hyperplasia without lower urinary tract symptoms
CPT/HCPCS: 2NBP; 84133; 84300; CCU; 36415; 71045; 80307; 81001; 82436; 82570; 87040; 87449; 87450; 87804; 87804-59; 93005; 93010; 96374; G0480; J0456; J0696; J1650; J1940; J2920; J2930